=== PATIENT | male | born 1940 | race Caucasian/White ===

== ENCOUNTER → 2017-07-22 | Outpatient (CLI) | payer MEDICARE ==
[2014-09-08 08:35] VITALS: BMI 31.4
[~2017-07-22] MED LIST: ACET650T40 PO; ALB17R INH; ALBU8.5H IH; AMLO-101 PO; AMLO-96 PO; ASPI-1441 PO; ASPI-715 PO; ASPI81TA94 PO; BACDS PO; BIS10S PR; BUDE10.2 IH; BUDE1AMP INH; CALC500T42 PO; CEF300 PO; CHOL500045 PO; CHOLESTEROL MED; CIP500 PO; CYC10 PO; DILT120T13 PO; DOC100 PO; EYE VITAMIN; FENT1PAT12 TD; FLAX100042 PO; FLUC150T40 PO; FOLTX PO; GAB300 PO; GLUC1KIT4 SQ; HYDR-2966 PO; HYDR-3078 PO; IPRA3AMP21 IH; KET10 PO; L.AC1CAP6 PO; LACT1CAP12; LEV500 PO; LEVO-85 PO; LOR5/325 PO; LORA0.5T11 PO; MACULAR PROTECT PO; MECL12.5 PO; MET10 PO; METH4TAB66 PO; MIDO2.5T12 PO; OLME1TAB49 PO; OLME1TAB51 PO; OMEP40CA48 PO; ONDA4TAB PO; OXYC-373 PO; OXYC-865 PO; OXYC-870 PO; OXYGEN INH; PER PO; PRED-420 PO; RANI-324 PO; SILD100T59 PO; SILD20TA PO; SIMV-44 PO; UMEC1DIS INH; VITAMIN D
[2017-07-22 09:05] LABS: PLATELET COUNT, AUTOMATED 177 K/uL (150-450)
== END ==
LOC: LAB 08:47
PROVIDERS: ATTEND Internal Medicine
DX: I25.10 Atherosclerotic heart disease of native coronary artery without angina pectoris (principal); K21.9 Gastro-esophageal reflux disease without esophagitis; E03.9 Hypothyroidism, unspecified; I10 Essential (primary) hypertension; Z95.0 Presence of cardiac pacemaker; Z01.818 Encounter for other preprocedural examination
CPT/HCPCS: 36415; 82040; 82247; 82310; 82374; 82435; 82565; 82947; 84075; 84132; 84155; 84295; 84443; 84450; 84460; 84520; 85025

== ENCOUNTER 2017-08-18 01:47 | Day surgery (SDC) | payer MEDICARE ==
[2014-09-08 08:35] VITALS: Ht 188 cm; Wt 99.8 kg
[~2017-08-18] VITALS: Ht 188 cm; Wt 99.8 kg
[2017-08-18] MEDS ORDERED: MIDAZOLAM 2 MG/2 ML VIAL IVP PRN (06:45)
[2017-08-18] MEDS ORDERED: FAMOTIDINE 20 MG TAB PO ONE (06:45)
[2017-08-18] MEDS ORDERED: NORMOSOL R SOLN(*) 1000 ML BAG 1,000 ML IV PRN (06:45)
[2017-08-18] MEDS ORDERED: LIDOCAINE/SOD BICARB 8.4% SYR ID ONE (06:45)
[2017-08-18 13:37] VITALS: BP 139/80
[2017-08-18] MEDS ORDERED: fentaNYL CITR 100 MCG/2 ML AMP ONE (13:42)
[2017-08-18] MEDS ORDERED: ONDANSETRON 4 MG/2 ML VIAL ONE (13:43)
[2017-08-18] MEDS ORDERED: LIDOCAINE MPF 1% 5 ML VIAL ONE (13:43)
[2017-08-18] MEDS ORDERED: PROPOFOL EMUL(*) 10MG/ML 20 ML 20 ML ONE (13:43)
[2017-08-18] MEDS ORDERED: ALBUTEROL/IPRATROPIUM 3 ML NEB ONE (13:54)
[2017-08-18] MEDS ORDERED: AMLO-104 PO (13:55)
[2017-08-18] MEDS ORDERED: LIDO/EPI 1% MDV 1:100,000 20ML INFIL ONE (14:35)
[2017-08-18] MEDS ORDERED: ROPIVACAINE 0.5% 20 ML VIAL ONE (14:35)
[2017-08-18] MEDS ORDERED: MIDAZOLAM 2 MG/2 ML VIAL ONE (15:19)
[2017-08-18] MEDS ORDERED: OXYC-373 PO (16:42)
[2017-08-18] MEDS ORDERED: DOCU-416 PO (16:42)
--- NOTE | 2017-08-18 16:45 | Short(Outpt) Discharge Summary ---
Discharge Summary Reason for Hosp/Final Diag: (1) Subcutaneous mass of head Status: Chronic Hospital Course & Plan: Scalp mass remove without problems. Departure Discharge to: Home, Self Care Discharge Instructions Home Meds Active Scripts Docusate Sodium (COLACE) 100 Mg Capsule, 1 CAP PO BID, #30 CAP 0 Refills TAKE WITH A FULL GLASS OF WATER Prov:EVAN BALLARD MD 08/18/17 Oxycodone Hcl/Acetaminophen (OXYCODONE-ACETAMINOPHEN 5-325) 1 Each Tablet, 1-2 TAB PO Q4H Y for PAIN, #30 TAB 0 Refills Prov:EVAN BALLARD MD 08/18/17 Umeclidinium Brm/Vilanterol Tr (Anoro Ellipta 62.5-25 Mcg INH) 1 Each Disk.w.dev , 1 PUFF INH QDAY, #1 DISK 6 Refills Prov:JAMAICA ESTRELLA MD 07/06/17 Budesonide (Budesonide) 1 Mg/2 Ml Ampul.neb, 1 VIAL INH BID, #60 VIAL 4 Refills Prov:JAMAICA ESTRELLA MD 06/21/17 Albuterol Sulfate 90 Mcg/Act (PROAIR HFA 90 MCG/ACT) 8.5 Gm Hfa.aer.ad, 2 PUFF IH Q4-6H, #1 INHALER 1 Refill Prov:JAMAICA ESTRELLA MD 06/07/17 Ipratropium/Albuterol Sulfate (IPRAT-ALBUT 0.5-3(2.5) MG/3 ML) 3 Ml Ampul.neb, 3 ML IH QID Y for DYSPNEA for 30 Days, #120 Prov:NATIVIDAD REDDING MD 05/24/17 Reported Medications Amlodipine Besylate (NORVASC) 10 Mg Tablet, 1 TAB PO QDAY, TAB 08/18/17 Aspirin (ASPIRIN) 81 Mg Tab.chew, 81 MG PO QDAY, TAB.CHEW 03/02/17 Discontinued Reported Medications Amlodipine Besylate (AMLODIPINE BESYLATE) 5 Mg Tablet, 1 TAB PO QDAY, TAB 01/05/17 Follow up Referrals: General Surgery - 09/12/17 @ Surgery, General with Evan Ballard Md You have a follow up appointment scheduled with Dr. Ballard on 09/12/17, at 11:45am. Diet: Regular Activity: As Tolerated Special Instructions: You may remove the white surgical dressing on 08/20/17, then you can shower. After showering, leave the incision open to air but leave the steristrips in place until they fall off on their own. Do not immerse the incision for 2 weeks. EVAN BALLARD MD Aug 18, 2017 16:45
--- NOTE | 2017-08-18 16:49 | Post Operative Progress Note ---
Post Operative Progress Note Date: Aug 18, 2017 Time: 16:44 Surgeon: Gabe Dictation number: [id number] Anesthesia: MAC by Dr. Dunn Pre-Op Diagnosis: Subcutaneous mass, scalp Post-Op Diagnosis: MER Findings: C/W dx Procedure(s): Excision of scalp subcutaneous mass Specimen Removed:(May be N/A): Subcutaneous mass, scalp Complications: None Fluids: See anesthesia record Estimated Blood Loss: Minimal Date OP Note Dictated: Aug 18, 2017 Time OP Note Dictated: 16:45 EVAN BALLARD MD Aug 18, 2017 16:49
[2017-08-18] MEDS ORDERED: oxyCODONE/ACETAMIN 5/325MG TH 2 TAB/BOTTLE ONE (17:41)
--- NOTE | 2017-08-19 14:22 | OPERATIVE REPORT 1 ---
EVENT DATE: August 18, 2017 SURGEON: Pablo Bernal MD ANESTHESIOLOGIST: Curtis Dunn MD ANESTHESIA: MAC. PREOPERATIVE DIAGNOSIS Subcutaneous mass, scalp. POSTOPERATIVE DIAGNOSIS Subcutaneous mass, scalp. PROCEDURE PERFORMED Excision of subcutaneous mass from scalp. COMPLICATIONS None. CONDITION Stable. BLOOD LOSS Minimal. INDICATIONS This is a 77-year-old gentleman who presented to my office with a mass on his right scalp behind his ear that he was requesting to have removed. DESCRIPTION OF PROCEDURE The patient was brought to the operating room and placed in the left lateral decubitus position on the operating table. MAC was administered, and his right posterior scalp was prepped and draped in a sterile fashion. Timeout was completed. I injected the skin overlying the mass initially with 1% lidocaine with epinephrine for immediate anesthesia, and then for longer acting, I injected 0.5% ropivacaine plain. I made a transverse incision overlying the mass and dissected through the dermis and into the subcutaneous fat. The mass was intramuscular, and it was adherent to the occipitalis muscle and galea, and I had to dissect it away from this layer with scissors. Ultimately, I was able to dissect it free completely around and made the wound hemostatic with bipolar electrocautery. I irrigated and dried the wound and then closed the wound with interrupted 3-0 Vicryl deep dermal sutures and 4-0 Monocryl running subcuticular suture. The skin was cleaned and dried, and Steri-Strips were applied, followed by a sterile surgical dressing. The patient was then awakened and brought to the recovery room in good condition having tolerated the procedure without any apparent problems. BRANDI
== END 2017-08-18 18:00 | disposition home or self-care (01) ==
LOC: OR 01:47
PROVIDERS: ATTEND Surgery
DX: D17.0 Benign lipomatous neoplasm of skin and subcutaneous tissue of head, face and neck (principal); E11.9 Type 2 diabetes mellitus without complications
CPT/HCPCS: 21012; 36416; 82948; 88305; 94640; A9270; J2001; J2250; J2405; J2704; J2795; J3010; J7620

== ENCOUNTER → 2017-11-09 | Outpatient (CLI) | payer MEDICARE ==
[2014-09-08 08:35] VITALS: BMI 31.4
[~2017-11-09] MED LIST changes: +AMLO-104 PO; +CHOL4PAC14 PO; +DOCU-416 PO; +EFIN4SOL TD; -RANI-324 PO; +RANI-366 PO
[2017-11-09 09:45] LABS: PLATELET COUNT, AUTOMATED 160 K/uL (150-450)
== END ==
LOC: LAB 09:15
PROVIDERS: ATTEND Internal Medicine
DX: I10 Essential (primary) hypertension (principal); E03.9 Hypothyroidism, unspecified; I25.10 Atherosclerotic heart disease of native coronary artery without angina pectoris; J44.9 Chronic obstructive pulmonary disease, unspecified; K52.9 Noninfective gastroenteritis and colitis, unspecified; Z90.49 Acquired absence of other specified parts of digestive tract; Z95.0 Presence of cardiac pacemaker
CPT/HCPCS: 36415; 82040; 82247; 82310; 82374; 82435; 82565; 82947; 83735; 84075; 84132; 84155; 84295; 84443; 84450; 84460; 84520; 85025

== ENCOUNTER → 2018-01-09 | Outpatient (CLI) | payer MEDICARE ==
[2014-09-08 08:35] VITALS: BMI 31.4
[~2018-01-09] MED LIST changes: +APIX5TAB PO; +ATOR40TA69 PO; +PRED20TA6 PO; +TRAM-420 PO
[2018-01-09 11:55] LABS: INR 1.15
[2018-01-09 13:36] LABS: PLATELET COUNT, AUTOMATED 194 K/uL (150-450)
== END ==
LOC: LAB 11:34
PROVIDERS: ATTEND Nurse Practitioner Family
DX: Z79.01 Long term (current) use of anticoagulants (principal); R53.1 Weakness; W19.XXXA Unspecified fall, initial encounter
CPT/HCPCS: 36415; 81001; 82040; 82247; 82310; 82374; 82435; 82565; 82947; 84075; 84132; 84155; 84295; 84450; 84460; 84520; 85025; 85610

== ENCOUNTER 2018-02-02 06:52 | Outpatient (RCR) | payer MEDICARE ==
[2014-09-08 08:35] VITALS: BMI 31.4
[2018-02-01 15:47] LABS: PLATELET COUNT, AUTOMATED 194 K/uL (150-450)
[~2018-02-02 06:52] MED LIST changes: +IPRA3AMP10 IH; -IPRA3AMP21 IH
--- NOTE | 2018-02-02 15:47 | RADIOLOGY IMAGING REPORT ---
FACILITY: [facility] PATIENT NAME: Kwesi Vasquez : 1940 MR: [id number] V: [id number] EXAM DATE: ORDERING PHYSICIAN: ERIKA LIRA TECHNOLOGIST: Location: [facility] - [place] Patient: Kwesi Vasquez : 1940 Visit/Account:[id number] Date of Sevice: 02/02/2018 Limited abdominal ultrasound of the right upper quadrant Indication: , RUQ abdominal pain Comparison: 11/14/2011 Findings Liver is normal in size, contour, and echotexture and measures 14.9 cm in length. There is normal hep atopedal portal venous flow. Gallbladder surgically absent. Common duct measures 4.0 mm in maximum diameter with no evidence of shadowing stone. The head and proximal body of the pancreas is unremarkable. The distal body and tail is obscured by o verlying bowel gas. Abdominal aorta and IVC are patent and unremarkable. The right kidney is normal in size, contour, and echotexture and measures 11.8 cm in length. IMPRESSION: 1. Normal right upper quadrant ultrasound in patient with prior cholecystectomy Report Dictated By: Quentin Martinez at 02/02/2018 3:42 PM Report E-Signed By: Quentin Martinez at 02/02/2018 3:44 PM WSN:[id number]
== END 2018-02-02 18:00 | disposition home or self-care (01) ==
LOC: EDSTATUS 06:52 → US 06:52
PROVIDERS: ATTEND Nurse Practitioner Primary Care
DX: R10.11 Right upper quadrant pain (principal); Z90.49 Acquired absence of other specified parts of digestive tract
CPT/HCPCS: 36415; 76705; 82040; 82150; 82247; 82310; 82374; 82435; 82565; 82947; 83690; 84075; 84132; 84155; 84295; 84450; 84460; 84520; 85025

== ENCOUNTER → 2018-02-24 | Outpatient (CLI) | payer MEDICARE ==
[2014-09-08 08:35] VITALS: BMI 31.4
== END ==
LOC: LAB 10:33
PROVIDERS: ATTEND Internal Medicine Cardiovascular Disease
DX: I27.20 Pulmonary hypertension, unspecified (principal)
CPT/HCPCS: 36415; 82310; 82374; 82435; 82565; 82947; 83880; 84132; 84295; 84520

== ENCOUNTER 2018-07-03 08:42 | Emergency (ER) | payer MEDICARE ==
[2014-09-08 08:35] VITALS: Wt 98.9 kg
[~2018-07-03 08:42] MED LIST changes: +AMLO-111 PO; -AMLO-96 PO; +BACL-1 PO; +FURO-47 PO; +OXYGENHOME INH; +POTA-23 PO; +PRED-1; +RIOC1.5T PO
--- NOTE | 2018-07-03 08:48 | ER Report ---
History and Physical Time Seen By MD: 08:48 HPI/ROS CHIEF COMPLAINT: Chest pain, shortness breath, cough HISTORY OF PRESENT ILLNESS: Patient is an 78-year-old male with a history of pulmonary embolism in November on , history of pulmonary hypertension being treated in pulmonary clinic. Patient reports that he recently had an esophageal surgery for which she was taken off of his Ellick was 3 days prior to the procedure which was on last Tuesday one week ago. Patient reports developing midsternal and right-sided chest pains which she describes as soreness for the past several days. Patient does wear oxygen at night and was noted to be 86% on room air but refuses to wear oxygen [id number]. Patient does have a pacemaker in place. He does report having worsening cough which is productive of clear sputum. The chest pain is partially reproducible on palpation of the right chest wall. Patient is afebrile, otherwise hemodynamically stable at time of evaluation. He does report having intermittent chills but denies fever. Patient does not take nebulizers at home due to lack of efficacy per his report. REVIEW OF SYSTEMS: Constitutional: No fever,+ chills. Eyes: No discharge. ENT: No sore throat. Cardiovascular: + mid sternal and right sided chest pain, no palpitations. Respiratory: + cough, + shortness of breath. Gastrointestinal: No abdominal pain, no vomiting. Genitourinary: No hematuria. Musculoskeletal: No back pain. Skin: No rashes. Neurological: No headache. Allergies: Coded Allergies: Penicillins (Verified Allergy, Intermediate, HIVES, 07/03/18) cefazolin (Verified Allergy, Intermediate, HIVES, 07/03/18) Home Meds Active Scripts Oxygen (OXYGEN) Inha, 2 L INH DAILY, #2 L Prov:LAUREN PUGA APRN [employer] 03/23/18 Ipratropium/Albuterol Sulfate (IPRAT-ALBUT 0.5-3(2.5) MG/3 ML) 3 Ml Ampul.neb, 3 ML IH QID PRN for DYSPNEA, #180 EA 1 Refill Prov:JAMAICA ESTRELLA MD 11/14/17 Reported Medications Macitentan (Opsumit) 10 Mg Tablet 07/03/18 Prednisone 10 Mg Tab (PREDNISONE 10 MG TAB) 10 Mg Tablet 03/23/18 Baclofen (BACLOFEN) 10 Mg Tablet, 1 TAB PO BID 03/23/18 Potassium Chloride (KLOR-CON 10) 10 Meq Tablet.er, 1 TAB PO DAILY, TAB 03/23/18 Furosemide (FUROSEMIDE) 40 Mg Tablet, 1 TAB PO DAILY, TAB 03/23/18 Riociguat (Adempas) 1.5 Mg Tablet, 1 TAB PO TID 03/23/18 Atorvastatin Calcium (ATORVASTATIN CALCIUM) 40 Mg Tablet, 1 TAB PO QDAY, TAB 01/09/18 Apixaban (ELIQUIS) 5 Mg Tablet, 1 TAB PO BID 01/09/18 Amlodipine Besylate (NORVASC) 10 Mg Tablet, 1 TAB PO QDAY, TAB 08/18/17 Aspirin (ASPIRIN) 81 Mg Tab.chew, 81 MG PO QDAY, TAB.CHEW 03/02/17 Hx Smoking: No Smoking Status: Never Smoker Exposure to Second Hand Smoke?: No Hx Substance Use Disorder: No Hx Alcohol Use: No Constitutional Vital Sign - Last 24 Hours 07/03/18 07/03/18 07/03/18 07/03/18 08:42 08:46 08:47 08:57 Temp 97.7 Pulse ??? 63 61 Resp 14 21 B/P (MAP) 115/69 (84) 115/69 Pulse Ox 86 96 O2 Delivery Room Air Nasal Cannula O2 Flow Rate 2 07/03/18 07/03/18 07/03/18 07/03/18 09:00 09:12 09:27 09:30 Pulse 62 61 Resp 19 11 B/P (MAP) 107/65 (79) 112/75 (87) Pulse Ox 95 95 O2 Delivery Nasal Cannula Nasal Cannula O2 Flow Rate 2 2 07/03/18 07/03/18 07/03/18 07/03/18 10:00 10:05 10:20 10:35 Pulse 66 60 68 Resp 27 15 13 B/P (MAP) 100/69 (79) Pulse Ox 97 96 96 O2 Delivery Nasal Cannula Nasal Cannula Room Air O2 Flow Rate 2 2 Physical Exam General Appearance: The patient is alert, has no immediate need for airway protection and no signs of toxicity. NAD Eyes: Pupils equal and round no pallor or injection. ENT, Mouth: Mucous membranes are moist. Respiratory: There are no retractions, lungs are clear to auscultation. Cardiovascular: Regular rate and rhythm. Gastrointestinal: Abdomen is soft and non tender, no masses, bowel sounds normal. Neurological: No focal neuro deficits Skin: Warm and dry, no rashes. Musculoskeletal: Neck is supple non tender. Extremities are nontender, nonswollen and have full range of motion. DIFFERENTIAL DIAGNOSIS: After history and physical exam differential diagnosis was considered for chest pain including but not limited to myocardial ischemia, pericarditis pulmonary embolus, chest wall pain, pleural inflammation and pulmonary infectious causes. Medical Decision Making Data Points Result Diagram: 07/03/18 0916 07/03/18 0916 Laboratory Hematology Test 07/03/18 09:16 Red Blood Count 4.60 M/uL (4.00-5.60) Mean Corpuscular Volume 90.1 fL (80.0-96.0) Mean Corpuscular Hemoglobin 30.4 pg (26.0-33.0) Mean Corpuscular Hemoglobin Concent 33.7 g/dL (32.0-36.0) Red Cell Distribution Width 14.4 % (11.5-14.5) Mean Platelet Volume 8.3 fL (7.2-11.1) Neutrophils (%) (Auto) 69.0 % (39.4-72.5) Lymphocytes (%) (Auto) 19.7 % (17.6-49.6) Monocytes (%) (Auto) 8.0 % (4.1-12.4) Eosinophils (%) (Auto) 2.1 % (0.4-6.7) Basophils (%) (Auto) 1.2 % (0.3-1.4) Nucleated RBC Relative Count (auto) 0.0 /100WBC Neutrophils # (Auto) 3.4 K/uL (2.0-7.4) Lymphocytes # (Auto) 1.0 K/uL (1.3-3.6) Monocytes # (Auto) 0.4 K/uL (0.3-1.0) Eosinophils # (Auto) 0.1 K/uL (0.0-0.5) Basophils # (Auto) 0.1 K/uL (0.0-0.1) Nucleated RBC Absolute Count (auto) 0.00 K/uL Sodium Level 138 mmol/L (137-145) Potassium Level 4.1 mmol/L (3.5-5.0) Chloride Level 101 mmol/L (98-107) Carbon Dioxide Level 30 mmol/L (22-30) Blood Urea Nitrogen 16 mg/dl (9-21) Creatinine 0.90 mg/dl (0.66-1.25) Glomerular Filtration Rate Calc > 60.0 Random Glucose 100 mg/dl (75-110) Calcium Level 9.0 mg/dl (8.4-10.2) Total Bilirubin 0.5 mg/dl (0.2-1.3) Aspartate Amino Transf (AST/SGOT) 42 U/L (0-35) Alanine Aminotransferase (ALT/SGPT) 56 U/L (0-56) Alkaline Phosphatase 53 U/L (0-126) Troponin I < 0.012 ng/ml Total Protein 6.7 g/dl (6.3-8.2) Albumin 3.7 g/dl (3.5-5.0) Chemistry Test 07/03/18 09:16 White Blood Count 4.9 k/uL (4.5-11.0) Red Blood Count 4.60 M/uL (4.00-5.60) Hemoglobin 14.0 g/dL (14.0-18.0) Hematocrit 41.4 % (42.0-52.0) Mean Corpuscular Volume 90.1 fL (80.0-96.0) Mean Corpuscular Hemoglobin 30.4 pg (26.0-33.0) Mean Corpuscular Hemoglobin Concent 33.7 g/dL (32.0-36.0) Red Cell Distribution Width 14.4 % (11.5-14.5) Platelet Count 159 K/uL (150-450) Mean Platelet Volume 8.3 fL (7.2-11.1) Neutrophils (%) (Auto) 69.0 % (39.4-72.5) Lymphocytes (%) (Auto) 19.7 % (17.6-49.6) Monocytes (%) (Auto) 8.0 % (4.1-12.4) Eosinophils (%) (Auto) 2.1 % (0.4-6.7) Basophils (%) (Auto) 1.2 % (0.3-1.4) Nucleated RBC Relative Count (auto) 0.0 /100WBC Neutrophils # (Auto) 3.4 K/uL (2.0-7.4) Lymphocytes # (Auto) 1.0 K/uL (1.3-3.6) Monocytes # (Auto) 0.4 K/uL (0.3-1.0) Eosinophils # (Auto) 0.1 K/uL (0.0-0.5) Basophils # (Auto) 0.1 K/uL (0.0-0.1) Nucleated RBC Absolute Count (auto) 0.00 K/uL Glomerular Filtration Rate Calc > 60.0 Calcium Level 9.0 mg/dl (8.4-10.2) Total Bilirubin 0.5 mg/dl (0.2-1.3) Aspartate Amino Transf (AST/SGOT) 42 U/L (0-35) Alanine Aminotransferase (ALT/SGPT) 56 U/L (0-56) Alkaline Phosphatase 53 U/L (0-126) Troponin I < 0.012 ng/ml Total Protein 6.7 g/dl (6.3-8.2) Albumin 3.7 g/dl (3.5-5.0) EKG/Imaging EKG Interpretation Electronic atrial pacer, ventricular rate 62, QTC 414 Monitor Interpretation: Other (Paced rhythm) Imaging CTA CHEST WW/O CNTR (PULM ANG) HISTORY: SOB, CP, hx PE in november, recent surgery TECHNIQUE: CTA chest with intravenous contrast attention to pulmonary arteries. Sagittal, coronal and slab 3D MIP coronal reconstructed images were also created for further evaluation and interpretation. One of the following dose optimization techniques was utilized in the performance of this exam: Automated exposure control; adjustment of the mA and/or kV according to the patient's size; or use of an iterative reconstruction technique. Specific details can be referenced in the facility's radiology CT exam operational policy. CONTRAST: 75 mL Isovue-370. COMPARISON: CT dated May 24, 2017. FINDINGS: Heart/vessels: Satisfactory opacification of the pulmonary arteries without visualized pulmonary embolus. At least moderate calcifications within the coronary arteries. Mild sclerosis within the aortic valve. Mediastinum: Negative. Lymph nodes: Negative. Lungs/pleura: No pulmonary or consolidation. Mild linear atelectasis and/or scarring within the lung bases. Visualized upper abdomen: Negative. Bones/soft tissues: Multiple chronic healed rib fractures. Partial visualization of cervical fusion hardware. No acute or concerning osseous abnormality. Mild chronic wedge-shaped compression deformity of the T4 and T5 vertebral bodies. There is exaggerated kyphosis of the thoracic spine. IMPRESSION: 1. No acute findings. Negative for pulmonary embolus. 2. At least moderate calcifications within the coronary arteries. ED Course/Re-evaluation ED Course Patient is an 78-year-old male with a history of hypertension, pulmonary embolism in November, recent esophageal surgery for which she was taken off of Eloquis. Patient reports worsening cough, midsternal and right-sided chest pain which is partially reproducible and sore in nature. Patient was noted to be 86% on room air with supplemental nocturnal oxygen history but refuses to wear oxygen during the day due to his activities. Patient is concerned that he has a recurrent pulmonary embolism or lung infection prompting CT PE which was found to be negative for pulmonary embolism and infection. Troponin was negative. Blood counts were unremarkable otherwise. Patient was stable at time of discharge. Patient was advised to keep his scheduled appointment to follow up with his PCP closely. Decision to Disposition Date: Jul 03, 2018 Decision to Disposition Time: 10:29 Depart Departure Latest Vital Signs Vital Signs Date Time Temp Pulse Resp B/P (MAP) Pulse Ox O2 Delivery O2 Flow Rate FiO2 07/03/18 10:35 68 13 96 Room Air 07/03/18 10:20 2 07/03/18 10:00 100/69 (79) 07/03/18 08:47 97.7 Impression: Primary Impression: Chest wall pain Condition: Improved Disposition: HOME OR SELF-CARE Referrals: LAUREN PUGA APRN [facility] (PCP) Patient Instructions: Chest Wall Pain (GEN) Additional Instructions: Please keep scheduled appointments. Please follow-up with your family doctor in the next 2 days for follow-up evaluation and care. Please return promptly if you develop worsening pain, increased shortness breath, fevers, worsening cough. CT imaging of your chest showed no signs of pneumonia or pulmonary embolism. MIKE MAYA DO Jul 03, 2018 08:48
[2018-07-03] MEDS ORDERED: MACI10TA (08:55)
[2018-07-03] MEDS ORDERED: IOPAMIDOL 76% 100 ML INFUS BTL 100 ML ONE (09:20)
[2018-07-03] MEDS ORDERED: NS(*) 0.9% 50 ML BAG 50 ML ONE (09:20)
[2018-07-03 09:26] LABS: PLATELET COUNT, AUTOMATED 159 K/uL (150-450)
[2018-07-03 10:00] VITALS: BP 100/69
--- NOTE | 2018-07-03 10:23 | RADIOLOGY IMAGING REPORT ---
FACILITY: [facility] PATIENT NAME: Kwesi Vasquez : 1940 MR: [id number] V: [id number] EXAM DATE: ORDERING PHYSICIAN: MIKE MAYA TECHNOLOGIST: [place] [facility] [place] Kwesi Vas[place] : 1940 Visit/Account:[id number] Date of Sevice: 07/03/2018 CTA CHEST WW/O CNTR (PULM ANG) HISTORY: SOB, CP, hx PE in november, recent surgery TECHNIQUE: CTA chest with intravenous contrast attention to pulmonary arteries. Sagittal, coronal a nd slab 3D MIP coronal reconstructed images were also created for further evaluation and interpretati on. One of the following dose optimization techniques was utilized in the performance of this exam: Autom ated exposure control; adjustment of the mA and/or kV according to the patient's size; or use of an i terative reconstruction technique. Specific details can be referenced in the facility's radiology CT exam operational policy. CONTRAST: 75 mL Isovue-370. COMPARISON: CT dated May 24, 2017. FINDINGS: Heart/vessels: Satisfactory opacification of the pulmonary arteries without visualized pulmonary emb olus. At least moderate calcifications within the coronary arteries. Mild sclerosis within the aortic valve. Mediastinum: Negative. Lymph nodes: Negative. Lungs/pleura: No pulmonary or consolidation. Mild linear atelectasis and/or scarring within the lung bases. Visualized upper abdomen: Negative. Bones/soft tissues: Multiple chronic healed rib fractures. Partial visualization of cervical fusion hardware. No acute or concerning osseous abnormality. Mild chronic wedge-shaped compression deformity of the T4 and T5 vertebral bodies. There is exaggerated kyphosis of the thoracic spine. IMPRESSION: 1. No acute findings. Negative for pulmonary embolus. 2. At least moderate calcifications within the coronary arteries. Report Dictated By: Wilmer Mendez MD at 07/03/2018 10:14 AM Report E-Signed By: Wilmer Mendez MD at 07/03/2018 10:19 AM WSN:[id number]
--- NOTE | 2018-07-03 11:23 | EKG ---
FACILITY: [facility] - [place] PATIENT NAME: EMILY DE LEON : [id number] MR: [id number] V: [id number] EXAM DATE: ORDERING PHYSICIAN: MIKE MAYA TECHNOLOGIST: STEVIE Test Reason : CP Blood Pressure : / mmHG Vent. Rate : 062 BPM Atrial Rate : 062 BPM P-R Int : 228 ms QRS Dur : 104 ms QT Int : 408 ms P-R-T Axes : 000 019 007 degrees QTc Int : 414 ms Electronic atrial pacemaker When compared with ECG of 07-JUN-2017 11:49, No significant change was found Confirmed by EVAN CARNES ([id number]) on 07/04/2018 6:26:42 AM Referred By: FRANCESCO Confirmed By:EAVN CARNES
== END 2018-07-03 10:53 | disposition home or self-care (01) ==
LOC: ER 08:53
DX: R07.89 Other chest pain (principal)
CPT/HCPCS: 71275; 84484; 85025; 93005; 99284; J7050; Q9967; 82040; 82247; 82310; 82374; 82435; 82565; 82947; 84075; 84132; 84155; 84295; 84450; 84460; 84520

== ENCOUNTER 2018-07-13 09:00 | Outpatient (RCR) | payer MEDICARE ==
[2014-09-08 08:35] VITALS: BMI 31.4
[~2018-07-13 09:00] MED LIST changes: -AMLO-111 PO; +AMLO-125 PO; +MACI10TA
[2018-07-21] MEDS ORDERED: LEVO-85 PO (10:53)
[2018-07-21] MEDS ORDERED: FLUT16SP19 NS (10:53)
[2018-07-23] MEDS ORDERED: PRED50TA22 PO (00:47)
[2018-07-23] MEDS ORDERED: IPRA3AMP10 IH (00:47)
[2018-07-23] MEDS ORDERED: NEBU1KIT30 MC (00:47)
[2018-07-24] MEDS ORDERED: CHOL10005 PO (10:07)
[2018-07-24] MEDS ORDERED: RIOC2.5T PO (10:07)
[2018-07-24] MEDS ORDERED: POTA20TA94 PO (10:07)
[2018-07-28] MEDS ORDERED: IPRA3AMP10 IH (10:58)
[2018-07-28] MEDS ORDERED: LEVO-85 PO (10:58)
[2018-07-28] MEDS ORDERED: PRED-1 PO (10:58)
[2018-08-09] MEDS ORDERED: FLUT1DIS28 IH (16:54)
[2018-08-09] MEDS ORDERED: BENZ200C15 PO (16:54)
== END 2018-08-09 ==
LOC: CARD 09:00
PROVIDERS: ATTEND Nurse Practitioner Family
DX: I27.20 Pulmonary hypertension, unspecified (principal)
CPT/HCPCS: 94667; G0239

== ENCOUNTER 2018-07-22 21:57 | Emergency (ER) | payer MEDICARE ==
[2014-09-08 08:35] VITALS: Wt 99.8 kg
[~2018-07-22 21:57] MED LIST changes: +AMLO-111 PO; -AMLO-125 PO; +FLUT16SP19 NS
--- NOTE | 2018-07-22 22:01 | ER Report ---
History and Physical Time Seen By MD: 22:00 HPI/ROS CHIEF COMPLAINT: Cough, shortness of breath HISTORY OF PRESENT ILLNESS: Patient is an 78-year-old male here with complaints of cough, shortness breath, fevers, chills, general malaise since . Patient reportedly started taking Levaquin and after being seen by his PCP yesterday however he reports increasing shortness of breath, fevers in spite of treatment. Patient denies history of smoking but does have a history significant for pulmonary emboli on [place]. Patient denies history of COPD, CHF. Patient has complaints of being unable to take a deep breath, he is wheezing present in all lung garcia. Patient does not have nebulizer treatments at home to take. He was 85% on room air which is a new oxygen requirement for this patient. Patient does have a pacemaker in place. REVIEW OF SYSTEMS: Constitutional: + fever, + chills. Eyes: No discharge. ENT: No sore throat. Cardiovascular: No chest pain, no palpitations. Respiratory: + cough, + shortness of breath, + wheezing in all lung garcia Gastrointestinal: No abdominal pain, no vomiting. Genitourinary: No hematuria. Musculoskeletal: No back pain. Skin: No rashes. Neurological: No headache. Allergies: Coded Allergies: Penicillins (Verified Allergy, Intermediate, HIVES, 07/03/18) cefazolin (Verified Allergy, Intermediate, HIVES, 07/03/18) Home Meds Active Scripts Nebulizer (COMPACT COMPRESSOR NEBULIZER) 1 Each Each, EACH MC PRN for WHEEZING, #1 Prov:MIKE MAYA S DO 07/23/18 Ipratropium/Albuterol Sulfate (IPRAT-ALBUT 0.5-3(2.5) MG/3 ML) 3 Ml Ampul.neb, 3 ML IH Q6-8H PRN for WHEEZING, #30 VIAL Prov:MAYAMIKE S DO 07/23/18 Prednisone (PREDNISONE) 50 Mg Tablet, 50 MG PO QDAY for 4 Days, #4 TAB Prov:MAYAPKMIKE S DO 07/23/18 Fluticasone Prop 50 Mcg Ns (FLONASE 50 MCG NS) 16 Gm [place].susp, 2 SPRAYS NS QDAY for 30 Days, #1 BOT Prov:GERHARD BERMUDEZ MD 07/21/18 Levofloxacin 500 Mg Tab (LEVAQUIN 500 MG TAB) 500 Mg Tablet, 500 MG PO DAILY for 7 Days, #7 TAB Prov:GERHARD BERMUDEZ MD 07/21/18 Oxygen (OXYGEN) [place], 2 L INH DAILY, #2 L Prov:LAUREN PUGA APRN [facility] 03/23/18 Reported Medications Macitentan (Opsumit) 10 Mg Tablet 07/03/18 Potassium Chloride (KLOR-CON 10) 10 Meq Tablet.er, 1 TAB PO DAILY, TAB 03/23/18 Furosemide (FUROSEMIDE) 40 Mg Tablet, 1 TAB PO DAILY, TAB 03/23/18 Riociguat (Adempas) 1.5 Mg Tablet, 1 TAB PO TID 03/23/18 Atorvastatin Calcium (ATORVASTATIN CALCIUM) 40 Mg Tablet, 1 TAB PO QDAY, TAB 01/09/18 Apixaban (ELIQUIS) 5 Mg Tablet, 1 TAB PO BID 01/09/18 Amlodipine Besylate (NORVASC) 10 Mg Tablet, 1 TAB PO QDAY, TAB 08/18/17 Aspirin (ASPIRIN) 81 Mg Tab.chew, 81 MG PO QDAY, TAB.CHEW 03/02/17 Discontinued Reported Medications Prednisone 10 Mg Tab (PREDNISONE 10 MG TAB) 10 Mg Tablet 03/23/18 Baclofen (BACLOFEN) 10 Mg Tablet, 1 TAB PO BID 03/23/18 Discontinued Scripts Ipratropium/Albuterol Sulfate (IPRAT-ALBUT 0.5-3(2.5) MG/3 ML) 3 Ml Ampul.neb, 3 ML IH QID PRN for DYSPNEA, #180 EA 1 Refill Prov:JAMAICA ESTRELLA MD 11/14/17 Hx Smoking: No Smoking Status: Never Smoker Exposure to Second Hand Smoke?: No Hx Substance Use Disorder: No Hx Alcohol Use: No Constitutional Vital Sign - Last 24 Hours 07/22/18 07/22/18 07/22/18 07/22/18 21:57 22:02 22:05 22:10 Temp 98.9 Pulse ??? 64 Resp 16 B/P (MAP) 109/59 (76) 109/59 Pulse Ox 85 O2 Delivery Room Air O2 Flow Rate 3.0 12/29/18 12/29/18 12/29/18 12/29/18 22:12 22:15 22:15 22:27 Pulse 66 63 62 Resp 15 18 23 Pulse Ox 95 94 100 O2 Delivery Nasal Cannula O2 Flow Rate 2.5 07/22/18 07/22/18 07/22/18 07/22/18 22:30 22:31 22:42 22:57 Pulse 63 ??? 71 Resp 18 15 B/P (MAP) ???/??? (1665) Pulse Ox 96 O2 Delivery Nasal Cannula O2 Flow Rate 3 07/22/18 07/22/18 07/22/18 07/22/18 23:00 23:01 23:12 23:20 Temp 99.8 Pulse 63 67 Resp 18 16 B/P (MAP) 117/62 (80) Pulse Ox 96 O2 Delivery Nasal Cannula O2 Flow Rate 3 07/22/18 07/22/18 07/22/18 07/22/18 23:27 23:30 23:35 23:50 Pulse 79 71 73 Resp 40 12 16 B/P (MAP) 125/71 (89) Pulse Ox 96 97 97 O2 Delivery Nasal Cannula Nasal Cannula Nasal Cannula O2 Flow Rate 3 3 3 07/23/18 00:00 B/P (MAP) 92/38 (56) Physical Exam General Appearance: The patient is alert, has no immediate need for airway protection and no signs of toxicity. Mild distress due to SOB Eyes: Pupils equal and round no pallor or injection. ENT, Mouth: Mucous membranes are moist. Respiratory: + diffuse wheezing, diminished at bases Cardiovascular: Regular rate and rhythm. Gastrointestinal: Abdomen is soft and non tender, no masses, bowel sounds nor mal. Neurological: No focal neuro deficits Skin: Warm and dry, no rashes. Musculoskeletal: Neck is supple non tender. Extremities are nontender, nonswollen and have full range of motion. DIFFERENTIAL DIAGNOSIS: After history and physical exam differential diagnosis was considered for shortness of breath including but not limited to pulmonary infectious process, COPD, asthma, pulmonary embolus and congestive heart failure. Medical Decision Making Data Points Result Diagram: 07/22/18220807/22/182208 Laboratory Hematology Test 07/22/18 22:09 07/22/18 22:12 07/22/18 22:45 Red Blood Count 4.54 M/uL (4.00-5.60) Mean Corpuscular Volume 89.1 fL (80.0-96.0) Mean Corpuscular Hemoglobin 29.9 pg (26.0-33.0) Mean Corpuscular Hemoglobin Concent 33.5 g/dL (32.0-36.0) Red Cell Distribution Width 14.4 % (11.5-14.5) Mean Platelet Volume 8.8 fL (7.2-11.1) Neutrophils (%) (Auto) 57.0 % (39.4-72.5) Lymphocytes (%) (Auto) 22.7 % (17.6-49.6) Monocytes (%) (Auto) 15.7 % (4.1-12.4) Eosinophils (%) (Auto) 2.5 % (0.4-6.7) Basophils (%) (Auto) 2.1 % (0.3-1.4) Nucleated RBC Relative Count (auto) 0.0 /100WBC Neutrophils # (Auto) 2.7 K/uL (2.0-7.4) Lymphocytes # (Auto) 1.1 K/uL (1.3-3.6) Monocytes # (Auto) 0.7 K/uL (0.3-1.0) Eosinophils # (Auto) 0.1 K/uL (0.0-0.5) Basophils # (Auto) 0.1 K/uL (0.0-0.1) Nucleated RBC Absolute Count (auto) 0.00 K/uL Prothrombin Time 15.9 seconds (12.0-14.4) Prothromb Time International Ratio 1.26 Activated Partial Thromboplast Time 31 seconds (23-35) Blood Gas Patient Temperature 98.9 DEGREES Venous Blood pH 7.39 (7.31-7.41) Venous Blood Partial Pressure CO2 51 mmHg Venous Blood Partial Pressure O2 40 mmHg Venous Blood HCO3 31 mmol/L Venous Blood Oxygen Saturation 74 % Venous Blood Base Excess 6 mmol/L Oxygen Liters/Minute 95% Sodium Level 138 mmol/L (137-145) Potassium Level 3.7 mmol/L (3.5-5.0) Chloride Level 100 mmol/L (98-107) Carbon Dioxide Level 30 mmol/L (22-30) Blood Urea Nitrogen 17 mg/dl (9-21) Creatinine 1.00 mg/dl (0.66-1.25) Glomerular Filtration Rate Calc > 60.0 Random Glucose 100 mg/dl (75-110) Lactate 1.0 mmol/L (0.7-2.1) Calcium Level 9.1 mg/dl (8.4-10.2) Total Bilirubin 0.6 mg/dl (0.2-1.3) Aspartate Amino Transf (AST/SGOT) 27 U/L (0-35) Alanine Aminotransferase (ALT/SGPT) 44 U/L (0-56) Alkaline Phosphatase 53 U/L (0-126) Troponin I < 0.012 ng/ml B-Type Natriuretic Peptide 76 pg/ml (0-100) Total Protein 7.0 g/dl (6.3-8.2) Albumin 3.9 g/dl (3.5-5.0) Influenza Virus Type A (PCR) Negative (NEGATIVE) Influenza Virus Type B (PCR) Negative (NEGATIVE) Urine Color Yellow Urine Clarity Clear Urine pH 5.0 pH (4.8-9.5) Urine Specific [place] 1.017 Urine Protein Negative mg/dL (NEGATIVE) Urine Glucose (UA) Negative mg/dL (NEGATIVE) Urine Ketones Negative mg/dL (NEGATIVE) Urine Blood Negative (NEGATIVE) Urine Nitrite Negative (NEGATIVE) Urine Bilirubin Negative (NEGATIVE) Urine Urobilinogen Negative mg/dL (0.2-1.9) Urine Leukocyte Esterase Negative (NEGATIVE) Urine RBC None /HPF (0-2/HPF) Urine WBC <1 /HPF (0-5/HPF) Urine Squamous Epithelial Cells None /LPF (</=FEW) Urine Bacteria Negative /HPF (NONE-FEW) Urine Mucus Few /HPF (NONE-FEW) Chemistry Test 07/22/18 22:09 07/22/18 22:12 07/22/18 22:45 White Blood Count 4.7 k/uL (4.5-11.0) Red Blood Count 4.54 M/uL (4.00-5.60) Hemoglobin 13.6 g/dL (14.0-18.0) Hematocrit 40.4 % (42.0-52.0) Mean Corpuscular Volume 89.1 fL (80.0-96.0) Mean Corpuscular Hemoglobin 29.9 pg (26.0-33.0) Mean Corpuscular Hemoglobin Concent 33.5 g/dL (32.0-36.0) Red Cell Distribution Width 14.4 % (11.5-14.5) Platelet Count 146 K/uL (150-450) Mean Platelet Volume 8.8 fL (7.2-11.1) Neutrophils (%) (Auto) 57.0 % (39.4-72.5) Lymphocytes (%) (Auto) 22.7 % (17.6-49.6) Monocytes (%) (Auto) 15.7 % (4.1-12.4) Eosinophils (%) (Auto) 2.5 % (0.4-6.7) Basophils (%) (Auto) 2.1 % (0.3-1.4) Nucleated RBC Relative Count (auto) 0.0 /100WBC Neutrophils # (Auto) 2.7 K/uL (2.0-7.4) Lymphocytes # (Auto) 1.1 K/uL (1.3-3.6) Monocytes # (Auto) 0.7 K/uL (0.3-1.0) Eosinophils # (Auto) 0.1 K/uL (0.0-0.5) Basophils # (Auto) 0.1 K/uL (0.0-0.1) Nucleated RBC Absolute Count (auto) 0.00 K/uL Prothrombin Time 15.9 seconds (12.0-14.4) Prothromb Time International Ratio 1.26 Activated Partial Thromboplast Time 31 seconds (23-35) Blood Gas Patient Temperature 98.9 DEGREES Venous Blood pH 7.39 (7.31-7.41) Venous Blood Partial Pressure CO2 51 mmHg Venous Blood Partial Pressure O2 40 mmHg Venous Blood HCO3 31 mmol/L Venous Blood Oxygen Saturation 74 % Venous Blood Base Excess 6 mmol/L Oxygen Liters/Minute 95% Glomerular Filtration Rate Calc > 60.0 Lactate 1.0 mmol/L (0.7-2.1) Calcium Level 9.1 mg/dl (8.4-10.2) Total Bilirubin 0.6 mg/dl (0.2-1.3) Aspartate Amino Transf (AST/SGOT) 27 U/L (0-35) Alanine Aminotransferase (ALT/SGPT) 44 U/L (0-56) Alkaline Phosphatase 53 U/L (0-126) Troponin I < 0.012 ng/ml B-Type Natriuretic Peptide 76 pg/ml (0-100) Total Protein 7.0 g/dl (6.3-8.2) Albumin 3.9 g/dl (3.5-5.0) Influenza Virus Type A (PCR) Negative (NEGATIVE) Influenza Virus Type B (PCR) Negative (NEGATIVE) Urine Color Yellow Urine Clarity Clear Urine pH 5.0 pH (4.8-9.5) Urine Specific [place] 1.017 Urine Protein Negative mg/dL (NEGATIVE) Urine Glucose (UA) Negative mg/dL (NEGATIVE) Urine Ketones Negative mg/dL (NEGATIVE) Urine Blood Negative (NEGATIVE) Urine Nitrite Negative (NEGATIVE) Urine Bilirubin Negative (NEGATIVE) Urine Urobilinogen Negative mg/dL (0.2-1.9) Urine Leukocyte Esterase Negative (NEGATIVE) Urine RBC None /HPF (0-2/HPF) Urine WBC <1 /HPF (0-5/HPF) Urine Squamous Epithelial Cells None /LPF (</=FEW) Urine Bacteria Negative /HPF (NONE-FEW) Urine Mucus Few /HPF (NONE-FEW) Coagulation Test 07/22/18 22:09 Prothrombin Time 15.9 seconds Prothromb Time International Ratio 1.26 Activated Partial Thromboplast Time 31 seconds Urinalysis Test 07/22/18 22:45 Urine Color Yellow Urine Clarity Clear Urine pH 5.0 pH (4.8-9.5) Urine Specific [place] 1.017 Urine Protein Negative mg/dL (NEGATIVE) Urine Glucose (UA) Negative mg/dL (NEGATIVE) Urine Ketones Negative mg/dL (NEGATIVE) Urine Blood Negative (NEGATIVE) Urine Nitrite Negative (NEGATIVE) Urine Bilirubin Negative (NEGATIVE) Urine Urobilinogen Negative mg/dL (0.2-1.9) Urine Leukocyte Esterase Negative (NEGATIVE) Urine RBC None /HPF (0-2/HPF) Urine WBC <1 /HPF (0-5/HPF) Urine Squamous Epithelial Cells None /LPF (</=FEW) Urine Bacteria Negative /HPF (NONE-FEW) Urine Mucus Few /HPF (NONE-FEW) EKG/Imaging EKG Interpretation 12 lead EKG: Electronic atrial pacemaker paced rhythm, 62 bpm, QTC 403 Imaging Chest x-ray. No acute process or significant interval changes identified, please see official radiology report ED Course/Re-evaluation ED Course Patient is a 78-year-old male here with complaints of cough, shortness breath, fevers, chills started on Levaquin yesterday by his PCP. Patient has no prior history of underlying lung disease and denies smoking history. Patient reportedly had oxygen levels of 85%, came in with diffuse wheezing in all lung garcia. Cough and shortness breath started on and have persisted since that time. Chest x-ray showed no acute infectious process, consolidation or effusions. Patient's labs were unremarkable, patient did not have leukocytosis, lactate was normal, kidney function, electrolytes, VBG, BNP, troponin, urinalysis, coag panel were all found to be normal. Patient does have oxygen at home which she uses primarily at night. Patient was ambulated with pulse ox monitoring and was found to have oxygen saturations of 93-94% on 3 L of supplemental oxygen. Patient was started on prednisone burst therapy and advised to follow-up on Tuesday with his PCP. Patient was given scripts for a DuoNeb vials (3 given to go) since patient has a neb machine at home, prednisone 4 days. He was recommended to continue Levaquin until complete. Return precautions provided. Decision to Disposition Date: Jul 23, 2018 Decision to Disposition Time: 00:50 Depart Departure Latest Vital Signs Vital Signs Date Time Temp Pulse Resp B/P (MAP) Pulse Ox O2 Delivery O2 Flow Rate FiO2 07/23/18 00:00 92/38 (56) 07/22/18 23:50 73 16 97 Nasal Cannula 3 07/22/18 23:20 99.8 Impression: Primary Impression: Cough Additional Impression: Shortness of breath Condition: Improved Disposition: HOME OR SELF-CARE Referrals: LAUREN PUGA APRN [facility] (PCP) New Scripts Nebulizer (COMPACT COMPRESSOR NEBULIZER) 1 Each Each EACH MC PRN for WHEEZING, #1 Prov: MIKE MAYA S DO 07/23/18 Ipratropium/Albuterol Sulfate (IPRAT-ALBUT 0.5-3(2.5) MG/3 ML) 3 Ml Ampul.neb 3 ML IH Q6-8H PRN for WHEEZING, #30 VIAL Prov: MIKE MAYA DO 07/23/18 Prednisone (PREDNISONE) 50 Mg Tablet 50 MG PO QDAY for 4 Days, #4 TAB Prov: MIKE MAYA S DO 07/23/18 Patient Instructions: Dyspnea (GEN) Additional Instructions: Please continue your Levaquin prescription until complete. Please continue to use 3 L of oxygen via nasal cannula [id number]. You may use one nebulizer every 6-8 hours as needed for wheezing and shortness of breath. Please take pr ednisone 50 mg daily for the next 4 days. Please follow up closely with your family doctor on Tuesday. Please return immediately if you develop increasing shortness of breath, worsening cough, weakness, fevers, chills Problem Qualifiers MIKE MAYA DO Jul 22, 2018 22:01
[2018-07-22] MEDS ORDERED: NS(*) 0.9% 1000 ML BAG 1,000 ML IV ONE (22:11)
[2018-07-22] MEDS: ALBUTEROL/IPRATROPIUM 3 ML NEB NEB SCH ×3 (22:15→23:00)
[2018-07-22 22:21] LABS: PLATELET COUNT, AUTOMATED 146 K/uL (150-450)
[2018-07-22 22:31] LABS: INR 1.26
[2018-07-22] MEDS ORDERED: KETOROLAC 30 MG/ML VIAL IVP ONE (23:25)
[2018-07-23] MEDS ORDERED: predniSONE 20 MG TAB PO ONE ×2 (00:15→01:10)
[2018-07-23] MEDS ORDERED: ALBUTEROL 8 GM INHALER INH ONE (00:15)
[2018-07-23] MEDS ORDERED: IPRA3AMP10 IH (00:47)
[2018-07-23] MEDS ORDERED: PRED50TA22 PO (00:47)
[2018-07-23] MEDS ORDERED: NEBU1KIT30 MC (00:47)
[2018-07-23 00:55] VITALS: BP 96/55
[2018-07-23] MEDS ORDERED: ALBUTEROL/IPRATROPIUM 3 ML NEB NEB ONE ×3 (01:00)
--- NOTE | 2018-07-23 02:11 | EKG ---
FACILITY: [facility] [place]IENT NAME: EMILY DE LEON : [id number] MR: [id number] V: [id number] EXAM DATE: ORDERING PHYSICIAN: MIKE MAYA TECHNOLOGIST: DEVIN Test Reason : DYSPNEA Blood Pressure : / mmHG Vent. Rate : 062 BPM Atrial Rate : 062 BPM P-R Int : 228 ms QRS Dur : 100 ms QT Int : 398 ms P-R-T Axes : 109 042 010 degrees QTc Int : 403 ms Electronic atrial pacemaker When compared with ECG of 03-JUL-2018 08:51, No significant change was found Confirmed by VIET HINSON ([id number]) on 07/23/2018 6:16:54 AM Referred By: Confirmed By:VIET HINSON
--- NOTE | 2018-07-23 02:18 | RADIOLOGY IMAGING REPORT ---
FACILITY: [facility] - [place] PATIENT NAME: Kwesi Vasquez : 1940 MR: [id number] V: [id number] EXAM DATE: ORDERING PHYSICIAN: MIKE MAYA TECHNOLOGIST: Location: [facility] - [place] Patient: Kwesi Vasquez : 1940 Visit/Account:[id number] Date of Sevice: 07/22/2018 CHEST: Indication: Cough and chills. Technique: Frontal and lateral views were obtained. Comparison: 06/07/2017 Skeletal and soft tissue structures: There are stable degenerative changes and compression deformitie s in the spine. Bilateral old rib fractures and an old right clavicular fracture appear unchanged. No acute interval change is identified. Heart and mediastinum: The heart size is normal. Cardiac pacemaker leads appear unchanged. Lung garcia: Well expanded. No focal parenchymal consolidation or volume loss is identified. There ar e no signs of vascular congestion. Pleural spaces: Stable pleural thickening. No evidence of effusion or pneumothorax. Impression: No acute process or significant interval change is identified. Report Dictated By: Jacky Alvarez MD at 07/22/2018 11:10 PM Report E-Signed By: Jacky Alvarez MD at 07/22/2018 11:14 PM WSN:[id number]
[2018-07-24] MEDS ORDERED: CHOL10005 PO (10:07)
[2018-07-24] MEDS ORDERED: POTA20TA94 PO (10:07)
[2018-07-24] MEDS ORDERED: RIOC2.5T PO (10:07)
== END 2018-07-23 01:28 | disposition home or self-care (01) ==
LOC: ER 22:26
DX: R05 Cough (principal); R06.02 Shortness of breath; R09.02 Hypoxemia
CPT/HCPCS: 36415; 71046; 81001; 82803; 83605; 83880; 84484; 85025; 85610; 85730; 87040; 87502; 93005; 94640; 96361; 96374; 99284; J1885; J7030; J7512; J7620; 82040; 82247; 82310; 82374; 82435; 82565; 82947; 84075; 84132; 84155; 84295; 84450; 84460; 84520; J3535

== ENCOUNTER 2018-07-24 02:03 | Inpatient (IN) | payer MEDICARE ==
[~2018-07-24] VITALS: Ht 186.7 cm; Wt 99.9 kg
[~2018-07-24 02:03] MED LIST changes: +NEBU1KIT30 MC; +PRED50TA22 PO
--- NOTE | 2018-07-24 02:19 | ER Report ---
History and Physical Time Seen By MD: 02:16 Hx. of Stated Complaint: increased SOB today despite steroids and O2 at 3 L NC. HPI/ROS CHIEF COMPLAINT: short of breath and chest pain HISTORY OF PRESENT ILLNESS: This is an 78 year old male. He has been sick for about 4 days now[address] Had [address] Dr. Bermudez in the clinic 2 days ago, started on Flonase, DuoNebs and given a prescription for Levaquin to fill in about a week if not feeling better, but it looks like he started this right away. Was in the ER last night for shortness of breath, wheezing and fevers. Workup was negative other than the wheezing which seemed to be an upper respiratory infection, likely viral, with reactive airway disease. STarted on Prednisone and continuing on his other medications. Tonight seemed worsened. He is on 3 liters of oxygen for the last two nights. Tonight the nurses here in the ER say his wheezing and breathing is worse. He was very scared at home because of how bad his breathing was. Breathing treatments just did not seem to be helping much. He continues to have intermittent fevers. Negative influenza last night. Denies nausea or v omiting. Denies problems with bowels. Urinates frequently due to Furosemide, but otherwise no urinary changes. Chest pain tonight is a pressure feeling, worse when feeling short of breath. Allergies: Coded Allergies: Penicillins (Verified Allergy, Intermediate, HIVES, 07/24/18) cefazolin (Verified Allergy, Intermediate, HIVES, 07/24/18) Home Meds Active Scripts Nebulizer (COMPACT COMPRESSOR NEBULIZER) 1 Each Each, EACH MC PRN for WHEEZING, #1 Prov:MIKE MAYA DO 07/23/18 Ipratropium/Albuterol Sulfate (IPRAT-ALBUT 0.5-3(2.5) MG/3 ML) 3 Ml Ampul.neb, 3 ML IH Q6-8H PRN for WHEEZING, #30 VIAL Prov:MIKE MAYA DO 07/23/18 Prednisone (PREDNISONE) 50 Mg Tablet, 50 MG PO QDAY for 4 Days, #4 TAB Prov:MIKE MAYA DO 07/23/18 Fluticasone Prop 50 Mcg Ns (FLONASE 50 MCG NS) 16 Gm [place].susp, 2 SPRAYS NS QDAY for 30 Days, #1 BOT Prov:GERHARD BERMUDEZ MD 07/21/18 Levofloxacin 500 Mg Tab (LEVAQUIN 500 MG TAB) 500 Mg Tablet, 500 MG PO DAILY for 7 Days, #7 TAB Prov:GERHARD BERMUDEZ MD 07/21/18 Oxygen (OXYGEN) Inha, 2 L INH DAILY, #2 L Prov:LAUREN PUGA APRN LOGISTICS ASSISTANT-C 03/23/18 Reported Medications Cholecalciferol (Vitamin D3) (VITAMIN D3) 1,000 Unit Tablet, 2000 UNIT PO BID, TAB 07/24/18 Potassium Chloride (POTASSIUM CHLORIDE) 20 Meq Tab.er.prt, 20 MEQ PO QDAY 07/24/18 Riociguat (Adempas) 2.5 Mg Tablet, 2.5 MG PO TID 07/24/18 Furosemide (FUROSEMIDE) 40 Mg Tablet, 1 TAB PO DAILY, TAB 03/23/18 Atorvastatin Calcium (ATORVASTATIN CALCIUM) 40 Mg Tablet, 1 TAB PO QDAY, TAB 01/09/18 Apixaban (ELIQUIS) 5 Mg Tablet, 1 TAB PO BID 01/09/18 Aspirin (ASPIRIN) 81 Mg Tab.chew, 81 MG PO QDAY, TAB.CHEW 03/02/17 Discontinued Reported Medications Macitentan (Opsumit) 10 Mg Tablet 07/03/18 Potassium Chloride (KLOR-CON 10) 10 Meq Tablet.er, 1 TAB PO DAILY, TAB 03/23/18 Riociguat (Adempas) 1.5 Mg Tablet, 1 TAB PO TID 03/23/18 Amlodipine Besylate (NORVASC) 10 Mg Tablet, 1 TAB PO QDAY, TAB 08/18/17 Prednisone 10 Mg Tab (PREDNISONE 10 MG TAB) 10 Mg Tablet 03/23/18 Baclofen (BACLOFEN) 10 Mg Tablet, 1 TAB PO BID 03/23/18 Discontinued Scripts Ipratropium/Albuterol Sulfate (IPRAT-ALBUT 0.5-3(2.5) MG/3 ML) 3 Ml Ampul.neb, 3 ML IH QID PRN for DYSPNEA, #180 EA 1 Refill Prov:JAMAICA ESTRELLA MD 11/14/17 Reviewed Nurses Notes: Yes Hx Smoking: No Smoking Status: Never Smoker Exposure to Second Hand Smoke?: No Hx Substance Use Disorder: No Hx Alcohol Use: No Constitutional Vital Sign - Last 24 Hours 07/24/18 07/24/18 07/24/18 07/24/18 02:03 02:07 02:11 02:18 Temp 98.4 Pulse ??? 75 84 Resp 14 15 B/P (MAP) 141/46 (77) 141/46 Pulse Ox 92 99 O2 Delivery Nasal Cannula Nasal Cannula O2 Flow Rate 3 07/24/18 07/24/18 07/24/18 07/24/18 02:23 02:24 02:30 02:33 Pulse 72 74 ??? Resp 20 20 16 B/P (MAP) 119/68 (85) Pulse Ox 93 O2 Delivery Nasal Cannula O2 Flow Rate 3 07/24/18 07/24/18 07/24/18 07/24/18 02:48 02:53 03:00 03:08 Pulse 77 69 72 Resp 10 7 22 B/P (MAP) 121/63 (82) Pulse Ox 91 93 94 O2 Delivery Nasal Cannula Nasal Cannula Nasal Cannula O2 Flow Rate 3 3 3 07/24/18 07/24/18 07/24/18 07/24/18 03:23 03:53 04:00 04:01 Pulse 71 67 71 Resp 18 19 B/P (MAP) 125/72 (89) Pulse Ox 94 96 O2 Delivery Nasal Cannula Nasal Cannula O2 Flow Rate 3 3 07/24/18 07/24/18 07/24/18 07/24/18 04:06 04:21 04:30 04:36 Pulse 67 65 67 Resp 17 17 32 B/P (MAP) 116/75 (89) Pulse Ox 95 95 95 O2 Delivery Nasal Cannula Nasal Cannula Nasal Cannula O2 Flow Rate 3 3 3 Physical Exam General Appearance: The patient is alert. No acute distress. Non-toxic in appearance. Eyes: Pupils are equal, round. No pallor, injection or icterus. ENT: Mucous membranes are moist. Normal oral mucosa. Posterior oropharynx is normal. Neck: Supple and non tender. Respiratory: Lungs with wheezing, audible on walking into the room. Has some increase work of breathing, more so with exertion. Cardiovascular: Regular rate and rhythm. No murmurs, gallops or rubs. Normal capillary refill. Gastrointestinal: Abdomen is soft and non tender. Nondistended. Neurological: Alert and oriented x3. Skin: Warm and dry. DIFFERENTIAL DIAGNOSIS: After history and physical exam, differential diagnosis was considered for shortness of breath including but not limited to pulmonary infectious process, reactive airway disease, pulmonary embolus and congestive heart failure. Medical Decision Making Data Points Result Diagram: 07/24/1821007/24/18210 Laboratory Hematology Test 07/24/18 02:11 Red Blood Count 4.11 M/uL (4.00-5.60) Mean Corpuscular Volume 90.2 fL (80.0-96.0) Mean Corpuscular Hemoglobin 30.3 pg (26.0-33.0) Mean Corpuscular Hemoglobin Concent 33.5 g/dL (32.0-36.0) Red Cell Distribution Width 14.3 % (11.5-14.5) Mean Platelet Volume 8.8 fL (7.2-11.1) Neutrophils (%) (Auto) 91.4 % (39.4-72.5) Lymphocytes (%) (Auto) 5.6 % (17.6-49.6) Monocytes (%) (Auto) 2.9 % (4.1-12.4) Eosinophils (%) (Auto) 0.0 % (0.4-6.7) Basophils (%) (Auto) 0.1 % (0.3-1.4) Nucleated RBC Relative Count (auto) 0.0 /100WBC Neutrophils # (Auto) 7.5 K/uL (2.0-7.4) Lymphocytes # (Auto) 0.5 K/uL (1.3-3.6) Monocytes # (Auto) 0.2 K/uL (0.3-1.0) Eosinophils # (Auto) 0.0 K/uL (0.0-0.5) Basophils # (Auto) 0.0 K/uL (0.0-0.1) Nucleated RBC Absolute Count (auto) 0.00 K/uL Sodium Level 137 mmol/L (137-145) Potassium Level 4.1 mmol/L (3.5-5.0) Chloride Level 100 mmol/L (98-107) Carbon Dioxide Level 23 mmol/L (22-30) Blood Urea Nitrogen 22 mg/dl (9-21) Creatinine 1.00 mg/dl (0.66-1.25) Glomerular Filtration Rate Calc > 60.0 Random Glucose 165 mg/dl (75-110) Calcium Level 9.0 mg/dl (8.4-10.2) Total Bilirubin 0.4 mg/dl (0.2-1.3) Aspartate Amino Transf (AST/SGOT) 27 U/L (0-35) Alanine Aminotransferase (ALT/SGPT) 31 U/L (0-56) Alkaline Phosphatase 53 U/L (0-126) Troponin I < 0.012 ng/ml B-Type Natriuretic Peptide 121 pg/ml (0-100) Total Protein 7.0 g/dl (6.3-8.2) Albumin 4.0 g/dl (3.5-5.0) Chemistry Test 07/24/18 02:11 White Blood Count 8.2 k/uL (4.5-11.0) Red Blood Count 4.11 M/uL (4.00-5.60) Hemoglobin 12.4 g/dL (14.0-18.0) Hematocrit 37.1 % (42.0-52.0) Mean Corpuscular Volume 90.2 fL (80.0-96.0) Mean Corpuscular Hemoglobin 30.3 pg (26.0-33.0) Mean Corpuscular Hemoglobin Concent 33.5 g/dL (32.0-36.0) Red Cell Distribution Width 14.3 % (11.5-14.5) Platelet Count 134 K/uL (150-450) Mean Platelet Volume 8.8 fL (7.2-11.1) Neutrophils (%) (Auto) 91.4 % (39.4-72.5) Lymphocytes (%) (Auto) 5.6 % (17.6-49.6) Monocytes (%) (Auto) 2.9 % (4.1-12.4) Eosinophils (%) (Auto) 0.0 % (0.4-6.7) Basophils (%) (Auto) 0.1 % (0.3-1.4) Nucleated RBC Relative Count (auto) 0.0 /100WBC Neutrophils # (Auto) 7.5 K/uL (2.0-7.4) Lymphocytes # (Auto) 0.5 K/uL (1.3-3.6) Monocytes # (Auto) 0.2 K/uL (0.3-1.0) Eosinophils # (Auto) 0.0 K/uL (0.0-0.5) Basophils # (Auto) 0.0 K/uL (0.0-0.1) Nucleated RBC Absolute Count (auto) 0.00 K/uL Glomerular Filtration Rate Calc > 60.0 Calcium Level 9.0 mg/dl (8.4-10.2) Total Bilirubin 0.4 mg/dl (0.2-1.3) Aspartate Amino Transf (AST/SGOT) 27 U/L (0-35) Alanine Aminotransferase (ALT/SGPT) 31 U/L (0-56) Alkaline Phosphatase 53 U/L (0-126) Troponin I < 0.012 ng/ml B-Type Natriuretic Peptide 121 pg/ml (0-100) Total Protein 7.0 g/dl (6.3-8.2) Albumin 4.0 g/dl (3.5-5.0) EKG/Imaging EKG Interpretation 12 lead EKG: Rhythm: Electronic atrial pacemaker with occasional sinus beat, rate 80 Imaging CHEST PA AND LAT Additional pertinent History: SOB/chest pain COMPARISON STUDIES: 07/22/2018 FINDINGS: Support lines and catheters: Cardiac pacer leads from the left subclavian approach. Lungs and Pleura: No infiltrates or consolidations. No effusions. Heart and vasculature: Negative. Sarah and Mediastinum: Negative. Bones and Chest wall: Old healed right rib fractures. Status post anterior cervical fusion in the lower thoracic spine. Old healed deformity of the distal right clavicle. Anterior wedge compressions the T5 vertebral body of approximately 75%. Is unchanged when compared to the previous examinations. Upper Abdomen: Negative. IMPRESSION: 1. Negative chest for acute cardiopulmonary disease. No significant interval change compared to previous studies. Report Dictated By: Jose Antonio Lemons MD at 07/24/2018 2:[address] angiogram of the chest: Indication: Chest pain and dyspnea. Technique: Helical CT was performed through the chest following IV contrast enhancement with 75 cc of Isovue 370. Multiplanar reconstructions and MIP images are reviewed. One of the following dose optimization techniques was utilized in the performance of this exam: Automated exposure control; adjustment of the mA and/or kV according to the patient's size; or use of an iterative reconstruction technique. Specific details can be referenced in the facility's radiology CT exam operational policy. Comparison: 07/03/2018 Pulmonary arteries: There is uniform contrast enhancement. There are no signs of pulmonary emboli. Aorta and great vessels: There are stable atherosclerotic changes. There are no signs of aneurysm or dissection. Heart and pericardial soft tissues: There is stable cardiomegaly and coronary artery calcification. The cardiac pacemaker leads remain in satisfactory orientation. No pericardial effusion or soft tissue abnormality is identified. Mediastinal soft tissues: Unremarkable and unchanged. Lung garcia: Well-expanded. There is minimal linear scarring. No acute parenchymal process or consolidation is identified. Pleural spaces: No evidence of effusion, focal pleural thickening, or pne umothorax. Skeletal structures: There are stable postoperative, degenerative, and scoliotic changes in the spine. There are multiple old rib fractures. No acute skeletal deformity is identified. Upper abdomen: Unremarkable. IMPRESSION: No evidence of pulmonary emboli. No acute parenchymal or pleural process. Report Dictated By: Jacky Alvarez MD at 07/24/2018 4:07 AM ED Course/Re-evaluation Clinical Indication for ER IV: IV Access ED Course Patient was given DuoNeb breathing treatment on admission, seemed to improve a little bit, more so than what he felt at home. Still wheezing. Workup with labs and imaging and EKG is negative tonight. This appears to be a viral upper respiratory infection with reactive airway disease component. Given how bad the patient was home, we talked about options including returning home with more frequent breathing treatments versus admission. The patient is very nervous about what happened at home so I did call and speak with our hospitalist Dr. Gay who accepted the patient for admission Decision to Disposition Date: Jul 24, 2018 Decision to Disposition Time: 04:40 Depart Departure Latest Vital Signs Vital Signs Date Time Temp Pulse Resp B/P (MAP) Pulse Ox O2 Delivery O2 Flow Rate FiO2 07/24/18 04:36 67 32 95 Nasal Cannula 3 07/24/18 04:30 116/75 (89) 07/24/18 02:11 98.4 Impression: Primary Impression: Upper respiratory infection Additional Impression: Reactive airway disease that is not asthma Condition: Condition Unchanged Disposition: Admitted from ER Referrals: LAUREN PUGA APRN LOGISTICS ASSISTANT-C (PCP) Problem Qualifiers Primary Impression: Upper respiratory infection URI type: unspecified URI Qualified Codes: J06.9 - Acute upper respiratory infection, unspecified TEODORA CHAPPELL MD Jul 24, 2018 02:19
[2018-07-24] MEDS ORDERED: ALBUTEROL/IPRATROPIUM 3 ML NEB NEB ONE ×2 (02:25→04:40)
[2018-07-24 02:42] LABS: PLATELET COUNT, AUTOMATED 134 K/uL (150-450)
--- NOTE | 2018-07-24 02:42 | EKG ---
FACILITY: [facility] [place] PATIENT NAME: EMILY DE LEON : [id number] MR: [id number] V: [id number] EXAM DATE: ORDERING PHYSICIAN: TEODORA CHAPPELL TECHNOLOGIST: DEVIN Test Reason : DYSPNEA Blood Pressure : / mmHG Vent. Rate : 080 BPM Atrial Rate : 077 BPM P-R Int : 224 ms QRS Dur : 100 ms QT Int : 388 ms P-R-T Axes : 000 051 021 degrees QTc Int : 447 ms Electronic atrial pacemaker When compared with ECG of 22-JUL-2018 22:24, No significant change was found Confirmed by EVAN CARNES ([id number]) on 07/24/2018 6:45:44 AM Referred By: Confirmed By:EVAN CARNES
--- NOTE | 2018-07-24 03:21 | RADIOLOGY IMAGING REPORT ---
FACILITY: [facility] PATIENT NAME: Kwesi Vasquez : 1940 MR: [id number] V: [id number] EXAM DATE: ORDERING PHYSICIAN: TEODORA CHAPPELL TECHNOLOGIST: Location: [facility] [place] Patient: Kwesi Vasquez : 1940 Visit/Account:[id number] Date of Sevice: 07/24/2018 CHEST PA AND LAT Additional pertinent History: SOB/chest pain COMPARISON STUDIES: 07/22/2018 FINDINGS: Support lines and catheters: Cardiac pacer leads from the left subclavian approach. Lungs and Pleura: No infiltrates or consolidations. No effusions. Heart and vasculature: Negative. Sarah and Mediastinum: Negative. Bones and Chest wall: Old healed right rib fractures. Status post anterior cervical fusion in the lo wer thoracic spine. Old healed deformity of the distal right clavicle. Anterior wedge compressions th e T5 vertebral body of approximately 75%. Is unchanged when compared to the previous examinations. Upper Abdomen: Negative. IMPRESSION: 1. Negative chest for acute cardiopulmonary disease. No significant interval change compared to previ ous studies. Report Dictated By: Jose Antonio Lemons MD at 07/24/2018 2:52 AM Report E-Signed By: Jose Antonio Lemons MD at 07/24/2018 3:02 AM WSN:[id number]
[2018-07-24] MEDS ORDERED: NS(*) 0.9% 50 ML BAG 50 ML ONE (03:36)
[2018-07-24] MEDS ORDERED: IOPAMIDOL 76% 75 ML INFUS BTL 75 ML ONE (03:36)
--- NOTE | 2018-07-24 04:23 | RADIOLOGY IMAGING REPORT ---
FACILITY: [facility] PATIENT NAME: Kwesi Vasquez : 1940 MR: [id number] V: [id number] EXAM DATE: ORDERING PHYSICIAN: TEODORA CHAPPELL TECHNOLOGIST: Location: [facility] Patient: Kwesi Vasquez : 1940 Visit/Account:[id number] Date of Sevice: 07/24/2018 CT angiogram of the chest: Indication: Chest pain and dyspnea. Technique: Helical CT was performed through the chest following IV contrast enhancement with 75 cc of Isovue 370. Multiplanar reconstructions and MIP images are reviewed. One of the following dose optimization techniques was utilized in the performance of this exam: Autom ated exposure control; adjustment of the mA and/or kV according to the patient's size; or use of an i terative reconstruction technique. Specific details can be referenced in the facility's radiology CT exam operational policy. Comparison: 07/03/2018 Pulmonary arteries: There is uniform contrast enhancement. There are no signs of pulmonary emboli. Aorta and great vessels: There are stable atherosclerotic changes. There are no signs of aneurysm or dissection. Heart and pericardial soft tissues: There is stable cardiomegaly and coronary artery calcification. T he cardiac pacemaker leads remain in satisfactory orientation. No pericardial effusion or soft tissue abnormality is identified. Mediastinal soft tissues: Unremarkable and unchanged. Lung garcia: Well-expanded. There is minimal linear scarring. No acute parenchymal process or consoli dation is identified. Pleural spaces: No evidence of effusion, focal pleural thickening, or pneumothorax. Skeletal structures: There are stable postoperative, degenerative, and scoliotic changes in the spine . There are multiple old rib fractures. No acute skeletal deformity is identified. Upper abdomen: Unremarkable. IMPRESSION: No evidence of pulmonary emboli. No acute parenchymal or pleural process. Report Dictated By: Jacky Alvarez MD at 07/24/2018 4:07 AM Report E-Signed By: Jacky Alvarez MD at 07/24/2018 4:18 AM WSN:[id number]
[2018-07-24 05:02] VITALS: BP 130/63
[2018-07-24] MEDS ORDERED: INFLUENZA VIRUS VAC 0.5ML SYR IM ONLY ONE (05:45)
--- NOTE | 2018-07-24 06:05 | History & Physical ---
History of Present Illness Chief Complaint Shortness of breath History of Present Illness This patient presented to the emergency room complaining of shortness of breath. He started to have increased respiratory symptoms on Tuesday, and was seen by his primary care physician. He was started on levofloxacin, but was still feeling poorly on Tuesday. He went to the emergency room, and was started on oral prednisone. His symptoms continued to worsen over the next day. He reports feeling better after several breathing treatments in the ER this morning. History Problems: (1) Moderate to severe pulmonary hypertension (2) Recurrent deep venous thrombosis Status: Chronic (3) Pneumothorax, left Status: Chronic (4) History of pulmonary embolism (5) CAD (coronary artery disease) Home Meds Active Scripts Nebulizer (COMPACT COMPRESSOR NEBULIZER) 1 Each Each, EACH MC PRN for WHEEZING, #1 Prov:MIKE MAYA DO 07/23/18 Ipratropium/Albuterol Sulfate (IPRAT-ALBUT 0.5-3(2.5) MG/3 ML) 3 Ml Ampul.neb, 3 ML IH Q6-8H PRN for WHEEZING, #30 VIAL Prov:MIKE MAYA DO 07/23/18 Prednisone (PREDNISONE) 50 Mg Tablet, 50 MG PO QDAY for 4 Days, #4 TAB Prov:MIKE MAYA DO 07/23/18 Fluticasone Prop 50 Mcg Ns (FLONASE 50 MCG NS) 16 Gm [place].susp, 2 SPRAYS NS QDAY for 30 Days, #1 BOT Prov:GERHARD BERMUDEZ MD 07/21/18 Levofloxacin 500 Mg Tab (LEVAQUIN 500 MG TAB) 500 Mg Tablet, 500 MG PO DAILY for 7 Days, #7 TAB Prov:GERHARD BERMUDEZ MD 07/21/18 Oxygen (OXYGEN) Inha, 2 L INH DAILY, #2 L Prov:LAUREN PUGA APRN MAGNETIC TAPE COMPOSER OPERATOR-C 03/23/18 Reported Medications Macitentan (Opsumit) 10 Mg Tablet 07/03/18 Potassium Chloride (KLOR-CON 10) 10 Meq Tablet.er, 1 TAB PO DAILY, TAB 03/23/18 Furosemide (FUROSEMIDE) 40 Mg Tablet, 1 TAB PO DAILY, TAB 03/23/18 Riociguat (Adempas) 1.5 Mg Tablet, 1 TAB PO TID 03/23/18 Atorvastatin Calcium (ATORVASTATIN CALCIUM) 40 Mg Tablet, 1 TAB PO QDAY, TAB 01/09/18 Apixaban (ELIQUIS) 5 Mg Tablet, 1 TAB PO BID 01/09/18 Amlodipine Besylate (NORVASC) 10 Mg Tablet, 1 TAB PO QDAY, TAB 08/18/17 Aspirin (ASPIRIN) 81 Mg Tab.chew, 81 MG PO QDAY, TAB.CHEW 03/02/17 Discontinued Reported Medications Prednisone 10 Mg Tab (PREDNISONE 10 MG TAB) 10 Mg Tablet 03/23/18 Baclofen (BACLOFEN) 10 Mg Tablet, 1 TAB PO BID 03/23/18 Discontinued Scripts Ipratropium/Albuterol Sulfate (IPRAT-ALBUT 0.5-3(2.5) MG/3 ML) 3 Ml Ampul.neb, 3 ML IH QID PRN for DYSPNEA, #180 EA 1 Refill Prov:JAMAICA ESTRELLA MD 11/14/17 Allergies: Coded Allergies: Penicillins (Verified Allergy, Intermediate, HIVES, 07/24/18) cefazolin (Verified Allergy, Intermediate, HIVES, 07/24/18) Patient History: FH: brain aneurysm CHILD, Age:53 FH: colon cancer CHILD, Age:53 FH: heart attack MOTHER, FH: hypertension MOTHER, FH: stroke MOTHER, Hx Smoking: No Smoking Status: Never Smoker Exposure to Second Hand Smoke?: No Caffeine Intake: Coffee Caffeine/Cups Per Day: 6 cups each day Hx Alcohol Use: No Hx Substance Use Disorder: No Social Drug Use: Never Review of Systems All Systems Reviewed/Normal: Yes, Except as Noted Respiratory: Shortness of Breath, Wheezing Exam Vital Signs Vital Signs Date Time Temp Pulse Resp B/P (MAP) Pulse Ox O2 Delivery O2 Flow Rate FiO2 07/24/18 05:13 93 Nasal Cannula 3.0 07/24/18 05:02 98.6 78 17 130/63 (85) Neuro: No Gross deficits Eyes: PERRLA Cardiovascular: Regular Rate and Rhythm Respiratory: Other (Bilateral expiratory wheezing.) GI: Abd Soft and Non-Tender Extremities: No Edema Integumentary: No Cyanosis Medical Decision Making Data Points Result Diagram: 07/24/1821007/24/18210 EKG / Imaging Imaging Chest x-ray and CT chest reviewed. Assessment and Plan Problems: (1) COPD with acute exacerbation Assessment & Plan: He did present with increased shortness of breath and wheezing. His chest x-ray and CT scan were both negative for pneumonia. He has been placed on scheduled nebulizer treatments. We have continued his oral prednisone and levofloxacin. (2) Moderate to severe pulmonary hypertension Assessment & Plan: He is on chronic treatment with Adempas and Opsumit. He also takes Lasix for associated edema. (3) Essential hypertension Assessment & Plan: He is on chronic treatment with amlodipine. (4) CAD (coronary artery disease) Assessment & Plan: He is on chronic treatment with aspirin. (5) History of pulmonary embolism Assessment & Plan: He is on chronic treatment with apixaban. Copies to: GERHARD BERMUDEZ MD ; Venous Thromboembolism Antithrombotics Is Pt On Any Antithrombotics?: Yes Exam Sepsis Risk: No Definite Risk EVAN CARNES DO Jul 24, 2018 06:05
[2018-07-24] MEDS: ALBUTEROL/IPRATROPIUM 3 ML NEB NEB SCH ×5 (06:12→21:27)
[2018-07-24 08:09] VITALS: BP 123/86
[2018-07-24] MEDS: ALBUTEROL 2.5 MG/3 ML NEB NEB PRN ×2 (08:29→15:53)
[2018-07-24] MEDS ORDERED: predniSONE 10 MG TAB PO SCH (09:00)
[2018-07-24] MEDS ORDERED: PATIENT'S OWN MED PO SCH ×2 (09:00)
[2018-07-24] MEDS ORDERED: amLODIPine BESYL(*) 5 MG TAB PO SCH (09:00)
[2018-07-24] MEDS: RIOCIGUAT 2.5 MG PO SCH ×3 (09:42→21:04)
[2018-07-24] MEDS: FLUTICASONE PROP 0.05% 16 GM ENA SCH (09:42)
[2018-07-24] MEDS: ASPIRIN 81 MG CHEW PO SCH (09:43)
[2018-07-24] MEDS: APIXABAN 2.5 MG TABLET PO SCH ×2 (09:44→21:04)
[2018-07-24] MEDS: FUROSEMIDE 40 MG TAB PO SCH (09:45)
[2018-07-24] MEDS: LEVOFLOXACIN 500 MG TAB PO SCH (09:45)
[2018-07-24] MEDS ORDERED: POTA20TA94 PO (10:07)
[2018-07-24] MEDS ORDERED: CHOL10005 PO (10:07)
[2018-07-24] MEDS ORDERED: RIOC2.5T PO (10:07)
[2018-07-24] MEDS ORDERED: methylPREDNIS SUCC 125 MG/2ML IVP ONE (11:25)
[2018-07-24 12:32] VITALS: BP 117/75
[2018-07-24 14:31] VITALS: Ht 186.7 cm; Wt 99.9 kg
[2018-07-24 16:57] VITALS: BP 121/68
[2018-07-24] MEDS: methylPREDNIS SUCC 125 MG/2ML IVP SCH (18:21)
[2018-07-24] MEDS: ACETAMINOPHEN 325 MG TAB PO PRN (18:21)
[2018-07-24 19:06] VITALS: BP 120/66
[2018-07-24] MEDS: ATORVASTATIN 40 MG TAB PO SCH (21:03)
[2018-07-24] MEDS: MELATONIN 3 MG TAB PO SCH (21:04)
[2018-07-24 23:14] VITALS: BP 108/60
[2018-07-25] MEDS: methylPREDNIS SUCC 125 MG/2ML IVP SCH ×4 (00:09→17:28)
[2018-07-25 02:56] VITALS: BP 127/75
[2018-07-25] MEDS: ALBUTEROL/IPRATROPIUM 3 ML NEB NEB SCH ×5 (05:37→20:45)
[2018-07-25 05:57] LABS: PLATELET COUNT, AUTOMATED 119 K/uL (150-450)
[2018-07-25 07:39] VITALS: BP 130/73
[2018-07-25] MEDS: FLUTICASONE PROP 0.05% 16 GM ENA SCH (09:24)
[2018-07-25] MEDS: APIXABAN 2.5 MG TABLET PO SCH ×2 (09:25→20:24)
[2018-07-25] MEDS: RIOCIGUAT 2.5 MG PO SCH ×3 (09:25→20:24)
[2018-07-25] MEDS: ASPIRIN 81 MG CHEW PO SCH (09:25)
[2018-07-25] MEDS: FUROSEMIDE 40 MG TAB PO SCH (09:25)
[2018-07-25] MEDS: POTASSIUM CHL 20 MEQ TABCR PO SCH (10:02)
[2018-07-25] MEDS: LEVOFLOXACIN 500 MG TAB PO SCH (10:03)
[2018-07-25] MEDS: CHOLECALCIFEROL 1000 UNIT TAB PO SCH ×2 (10:03→20:24)
--- NOTE | 2018-07-25 10:40 | Hospitalist Progress Note ---
Subjective Progress Notes Subjective This patient was admitted for COPD. He had increased shortness of breath overnight. Patient Complains of: Cardiovascular: No: Chest Pain Respiratory: Shortness of Breath Physical Exam Vital Signs Date Time Temp Pulse Resp B/P (MAP) Pulse Ox O2 Delivery O2 Flow Rate FiO2 07/25/18 10:07 92 Nasal Cannula 2.0 07/25/18 10:07 69 20 07/25/18 07:39 98.5 130/73 (92) Intake and Output 07/25/18 07:00 Intake Total 1072 ml Balance 1072 ml Intake Oral 1072 ml # Voids 1 Cardiovascular: Regular Rate and Rhythm Respiratory: Other (Bilateral wheezes present.) Result Diagram: 07/25/1853307/25/18533 Assessment and Plan Problems: (1) COPD with acute exacerbation Assessment & Plan: He did present with increased shortness of breath and wheezing. His chest x-ray and CT scan were both negative for pneumonia. He has been placed on scheduled nebulizer treatments. He was started on levofloxacin prior to admission, and this has been discontinued. He is on IV steroids. (2) Moderate to severe pulmonary hypertension Assessment & Plan: He is on chronic treatment with Adempas and Opsumit. He also takes Lasix for associated edema. (3) Essential hypertension Assessment & Plan: He is on chronic treatment with amlodipine. (4) CAD (coronary artery disease) Assessment & Plan: He is on chronic treatment with aspirin. (5) History of pulmonary embolism Assessment & Plan: He is on chronic treatment with apixaban. Exam Sepsis Risk: No Definite Risk EVAN CARNES DO Jul 25, 2018 10:40
[2018-07-25 12:02] VITALS: BP 124/62
--- NOTE | 2018-07-25 14:18 | Antimicrobial Stewardship ---
Antimicrobial Stewardship Empiricly appropriate: Yes Significant PMH: Yes (COPD) Support empiric regimen: Yes Comment Was seen as an outpatient on 07/21/18, given a script for levofloxacin if not improving, pt filled and started right away per report. Determine cumulative duration: Today is day 5 of treatment Determine standard duration: 5-7days Comment 78 yo M with a history of COPD, pulmonary HTN, who presented to the ED with SOB. Started levofloxacin on 07/21/18, today is day 5. WBC have been wnl and afebrile. CT and chest x ray do not indicate a pneumonia, completed 5 days of therapy, discontinuation of therapy recommended. Levofloxacin stopped on 07/25/18. Katharine Crouch, PharmD, BCOP KATHARINE CROUCH Jul 25, 2018 14:18
[2018-07-25 15:21] VITALS: BP 109/58
[2018-07-25] MEDS: ACETAMINOPHEN 325 MG TAB PO PRN (17:10)
[2018-07-25 19:03] VITALS: BP 111/65
[2018-07-25] MEDS: ATORVASTATIN 40 MG TAB PO SCH (20:24)
[2018-07-25] MEDS: MELATONIN 3 MG TAB PO SCH (20:24)
[2018-07-26] MEDS: methylPREDNIS SUCC 125 MG/2ML IVP SCH ×4 (00:35→17:33)
[2018-07-26 00:36] VITALS: BP 123/68
[2018-07-26 03:04] VITALS: BP 115/68
[2018-07-26] MEDS: ALBUTEROL/IPRATROPIUM 3 ML NEB NEB SCH ×5 (05:15→21:38)
[2018-07-26] MEDS: ALBUTEROL 2.5 MG/3 ML NEB NEB PRN (05:15)
--- NOTE | 2018-07-26 08:48 | Antimicrobial Stewardship ---
Antimicrobial Stewardship Empiricly appropriate: Yes Support empiric regimen: Yes Comment Levofloxacin restarted on 07/26/17- 500mg po daily--> today is day 3, continue for 7 days total Renal/Hepatic dosing: Yes IV to PO Opportunity: Yes Comment Oral therapy is appropriate Determine cumulative duration: Today is day 3 Determine standard duration: Complete 7 days Comment Discussed with patient, he did not fill levofloxacin as an outpatient, therefor his therapy will be restarted with levofloxacin 500mg po daily with the plan to complete 7 days. Katharine Crouch, PharmD, OP KATHARINE CROUCH Jul 26, 2018 08:48
[2018-07-26 09:16] VITALS: BP 115/64
[2018-07-26] MEDS: CHOLECALCIFEROL 1000 UNIT TAB PO SCH ×2 (09:20→20:39)
[2018-07-26] MEDS: LEVOFLOXACIN 500 MG TAB PO SCH (09:20)
[2018-07-26] MEDS: FUROSEMIDE 40 MG TAB PO SCH (09:20)
[2018-07-26] MEDS: APIXABAN 2.5 MG TABLET PO SCH ×2 (09:20→20:39)
[2018-07-26] MEDS: POTASSIUM CHL 20 MEQ TABCR PO SCH (09:21)
[2018-07-26] MEDS: ASPIRIN 81 MG CHEW PO SCH (09:21)
[2018-07-26] MEDS: RIOCIGUAT 2.5 MG PO SCH ×3 (09:21→20:39)
[2018-07-26] MEDS: FLUTICASONE PROP 0.05% 16 GM ENA SCH (09:21)
[2018-07-26] MEDS: guaiFENesin/P-EPHED 1 EA TABCR PO SCH ×2 (10:19→20:39)
[2018-07-26 12:15] VITALS: BP 108/76
--- NOTE | 2018-07-26 13:50 | Hospitalist Progress Note ---
Subjective Progress Notes Subjective 78M admitted for acute on chronic hypoxic respiratory failure. RYANN overnight, slow to recover after recent insult. Patient Complains of: Cardiovascular: No: Chest Pain, Palpitations Respiratory: Cough, Congestion, Shortness of Breath, Wheezing Physical Exam Vital Signs Date Time Temp Pulse Resp B/P (MAP) Pulse Ox O2 Delivery O2 Flow Rate FiO2 07/26/18 12:15 97.7 68 24 108/76 (87) 94 Nasal Cannula 3.0 Intake and Output 07/26/18 07:00 Intake Total 1220 ml Balance 1220 ml Intake Oral 1220 ml # Voids 1 General Appearance: Alert, Awake, No Acute Distress, Afebrile Neck: No Masses Cardiovascular: Normal Rhythm & Peripheral Pulses Respiratory: No Respiratory Distress (+ wheezing) GI: Soft and Non-Tender Musculoskeletal: No Weakness/Pain Extremities: Soft and Non Tender, Warm, Pulses, Perfused; No Edema Result Diagram: 07/25/18 0534 07/25/1834 Assessment and Plan Problems: (1) COPD with acute exacerbation Assessment & Plan: He did present with increased shortness of breath and wheezing. His chest x-ray and CT scan were both negative for pneumonia. He has been placed on scheduled nebulizer treatments. He was started on levofloxacin and will continue for 5 days therapy. He is on IV steroids. (2) Moderate to severe pulmonary hypertension Assessment & Plan: He is on chronic treatment with Adempas and Opsumit. He also takes Lasix for associated edema. (3) Essential hypertension Assessment & Plan: He is on chronic treatment with amlodipine. (4) CAD (coronary artery disease) Assessment & Plan: He is on chronic treatment with aspirin. (5) History of pulmonary embolism Assessment & Plan: He is on chronic treatment with apixaban. Exam Sepsis Risk: No Definite Risk SERRANO KEITH FINNEY DO Jul 26, 2018 13:50
[2018-07-26 15:08] VITALS: BP 119/64
[2018-07-26 19:41] VITALS: BP 129/75
[2018-07-26] MEDS: ATORVASTATIN 40 MG TAB PO SCH (20:39)
[2018-07-26] MEDS: MELATONIN 3 MG TAB PO SCH (20:39)
[2018-07-27 00:38] VITALS: BP 116/62
[2018-07-27] MEDS: methylPREDNIS SUCC 125 MG/2ML IVP SCH ×2 (00:39→05:53)
[2018-07-27 03:38] VITALS: BP 135/77
[2018-07-27] MEDS: ALBUTEROL/IPRATROPIUM 3 ML NEB NEB SCH ×5 (04:10→21:37)
[2018-07-27 07:48] VITALS: BP 141/89
[2018-07-27] MEDS: RIOCIGUAT 2.5 MG PO SCH ×3 (08:15→20:32)
[2018-07-27] MEDS: APIXABAN 2.5 MG TABLET PO SCH ×2 (08:15→20:31)
[2018-07-27] MEDS: FLUTICASONE PROP 0.05% 16 GM ENA SCH (08:15)
[2018-07-27] MEDS: ASPIRIN 81 MG CHEW PO SCH (08:15)
[2018-07-27] MEDS: guaiFENesin/P-EPHED 1 EA TABCR PO SCH ×2 (08:15→20:32)
[2018-07-27] MEDS: CHOLECALCIFEROL 1000 UNIT TAB PO SCH ×2 (08:15→20:31)
[2018-07-27] MEDS: POTASSIUM CHL 20 MEQ TABCR PO SCH (08:15)
[2018-07-27] MEDS: FUROSEMIDE 40 MG TAB PO SCH (08:15)
[2018-07-27] MEDS: LEVOFLOXACIN 500 MG TAB PO SCH (10:09)
--- NOTE | 2018-07-27 11:37 | Hospitalist Progress Note ---
Subjective Progress Notes Subjective He reports some improvements, but still some dyspnea and wheezing. Physical Exam Vital Signs Date Time Temp Pulse Resp B/P (MAP) Pulse Ox O2 Delivery O2 Flow Rate FiO2 07/27/18 09:16 73 16 07/27/18 09:04 90 Nasal Cannula 3.0 07/27/18 07:48 97.7 141/89 (106) Intake and Output 07/27/18 07:00 Intake Total 480 ml Balance 480 ml Intake Oral 480 ml # Voids 4 General Appearance: Alert, Awake Cardiovascular: Regular Rate and Rhythm Respiratory: Other (soft expiratory wheezes heard best over sternum/manubrium area) Result Diagram: 07/25/1853307/25/18533 Assessment and Plan Problems: (1) COPD with acute exacerbation Assessment & Plan: He did present with increased shortness of breath and wheezing. His chest x-ray and CT scan were both negative for infiltrate/pneumonia. He has been placed on scheduled nebulizer treatments. He was started on levofloxacin and will continue for 7 days therapy. He is also on IV steroids and will be transitioned to oral. (2) Moderate to severe pulmonary hypertension Assessment & Plan: He is on chronic treatment with Adempas and Opsumit. He also takes Lasix for associated edema. (3) Essential hypertension Assessment & Plan: He is on chronic treatment with amlodipine. (4) CAD (coronary artery disease) Assessment & Plan: He is on chronic treatment with aspirin. (5) History of pulmonary embolism Assessment & Plan: He is on chronic treatment with apixaban. Exam Sepsis Risk: No Definite Risk VIET HINSON MD Jul 27, 2018 11:37
[2018-07-27 14:50] VITALS: BP 126/67
[2018-07-27] MEDS: predniSONE 20 MG TAB PO SCH (17:47)
[2018-07-27] MEDS: ACETAMINOPHEN 325 MG TAB PO PRN (19:31)
[2018-07-27 20:29] VITALS: BP 117/77
[2018-07-27] MEDS: ATORVASTATIN 40 MG TAB PO SCH (20:31)
[2018-07-27] MEDS: MELATONIN 3 MG TAB PO SCH (20:32)
[2018-07-27 23:43] VITALS: BP 126/66
[2018-07-28 02:20] VITALS: BP 117/69
[2018-07-28] MEDS: ALBUTEROL/IPRATROPIUM 3 ML NEB NEB SCH ×3 (02:24→10:40)
[2018-07-28 07:00] VITALS: BP 116/82
[2018-07-28] MEDS: RIOCIGUAT 2.5 MG PO SCH (08:10)
[2018-07-28] MEDS: predniSONE 20 MG TAB PO SCH (08:10)
[2018-07-28] MEDS: FLUTICASONE PROP 0.05% 16 GM ENA SCH (08:10)
[2018-07-28] MEDS: ASPIRIN 81 MG CHEW PO SCH (08:10)
[2018-07-28] MEDS: FUROSEMIDE 40 MG TAB PO SCH (08:11)
[2018-07-28] MEDS: APIXABAN 2.5 MG TABLET PO SCH (08:11)
[2018-07-28] MEDS: POTASSIUM CHL 20 MEQ TABCR PO SCH (08:11)
[2018-07-28] MEDS: CHOLECALCIFEROL 1000 UNIT TAB PO SCH (08:11)
[2018-07-28] MEDS: guaiFENesin/P-EPHED 1 EA TABCR PO SCH (08:11)
[2018-07-28] MEDS: LEVOFLOXACIN 500 MG TAB PO SCH (10:25)
[2018-07-28] MEDS ORDERED: IPRA3AMP10 IH (10:58)
[2018-07-28] MEDS ORDERED: LEVO-85 PO (10:58)
[2018-07-28] MEDS ORDERED: PRED-1 PO (10:58)
--- NOTE | 2018-07-28 11:08 | Hospitalist Depart ---
Discharge Summary Reason for Hosp/Final Diag: (1) COPD with acute exacerbation Hospital Course & Plan: He did present with increased shortness of breath and wheezing. His chest x-ray and CT scan were both negative for infiltrate/pneumonia. He has been placed on scheduled nebulizer treatments. He was started on levofloxacin and will continue for 7 days therapy. He will be transitioned to oral steroids from IV. He will be placed on a long taper. (2) Moderate to severe pulmonary hypertension Hospital Course & Plan: He is on chronic treatment with Adempas and Opsumit. He also takes Lasix for associated edema. (3) Essential hypertension Hospital Course & Plan: He is on chronic treatment with amlodipine. (4) CAD (coronary artery disease) Hospital Course & Plan: He is on chronic treatment with aspirin. (5) History of pulmonary embolism Hospital Course & Plan: He is on chronic treatment with apixaban. Departure Latest Vital Signs Vital Signs 07/28/18 07/28/18 07:00 10:41 Temp 98.2 Pulse 63 Resp 16 B/P (MAP) 116/82 (93) Pulse Ox 92 O2 Delivery Nasal Cannula O2 Flow Rate 2.0 Weight (Pounds): 220 Weight (Ounces): 3.0 Result Diagram: 07/25/1853307/25/18533 Condition: Improved Discharge: Home, Self Care Discharge Instructions Home Meds Active Scripts Prednisone 10 Mg Tab (PREDNISONE 10 MG TAB) 10 Mg Tablet, 10 MG PO DIRECTED, #55 TAB Take 6 tablets for 1 day, then 5 tablets for 3 days, then 4 tablets for 3 days, then 3 tablets for 3 days, then 2 tablets for 2 days, then 1 tablet for 3 days, then stop. Prov:DYLAN VIRGENP 07/28/18 Levofloxacin 500 Mg Tab (LEVAQUIN 500 MG TAB) 500 Mg Tablet, 500 MG PO QDAY, #2 TAB Prov:DYLAN VIRGEN 07/28/18 Ipratropium/Albuterol Sulfate (IPRAT-ALBUT 0.5-3(2.5) MG/3 ML) 3 Ml Ampul.neb, 3 ML IH Q6-8H PRN for WHEEZING, #30 VIAL Prov:DYLAN VIRGEN 07/28/18 Nebulizer (COMPACT COMPRESSOR NEBULIZER) 1 Each Each, EACH MC PRN for WHEEZING, #1 Prov:MIKE MAYA S DO 07/23/18 Fluticasone Prop 50 Mcg Ns (FLONASE 50 MCG NS) 16 Gm [place].susp, 2 SPRAYS NS QDAY for 30 Days, #1 BOT Prov:GERHARD BERMUDEZ MD 07/21/18 Oxygen (OXYGEN) Inha, 2 L INH DAILY, #2 L Prov:LAUREN PUGA APRN REHAB DEPARTMENT MANAGER-C 03/23/18 Reported Medications Cholecalciferol (Vitamin D3) (VITAMIN D3) 1,000 Unit Tablet, 2000 UNIT PO BID, TAB 07/24/18 Potassium Chloride (POTASSIUM CHLORIDE) 20 Meq Tab.er.prt, 20 MEQ PO QDAY 07/24/18 Riociguat (Adempas) 2.5 Mg Tablet, 2.5 MG PO TID 07/24/18 Furosemide (FUROSEMIDE) 40 Mg Tablet, 1 TAB PO DAILY, TAB 03/23/18 Atorvastatin Calcium (ATORVASTATIN CALCIUM) 40 Mg Tablet, 1 TAB PO QDAY, TAB 01/09/18 Apixaban (ELIQUIS) 5 Mg Tablet, 1 TAB PO BID 01/09/18 Aspirin (ASPIRIN) 81 Mg Tab.chew, 81 MG PO QDAY, TAB.CHEW 03/02/17 Discontinued Reported Medications Macitentan (Opsumit) 10 Mg Tablet 07/03/18 Potassium Chloride (KLOR-CON 10) 10 Meq Tablet.er, 1 TAB PO DAILY, TAB 03/23/18 [place] (Adempas) 1.5 Mg Tablet, 1 TAB PO TID 03/23/18 Amlodipine Besylate (NORVASC) 10 Mg Tablet, 1 TAB PO QDAY, TAB 08/18/17 Prednisone 10 Mg Tab (PREDNISONE 10 MG TAB) 10 Mg Tablet 03/23/18 Baclofen (BACLOFEN) 10 Mg Tablet, 1 TAB PO BID 03/23/18 Discontinued Scripts Prednisone (PREDNISONE) 50 Mg Tablet, 50 MG PO QDAY for 4 Days, #4 TAB Prov:MIKE MAYA DO 07/23/18 Levofloxacin 500 Mg Tab (LEVAQUIN 500 MG TAB) 500 Mg Tablet, 500 MG PO DAILY for 7 Days, #7 TAB Prov:GERHARD BERMUDEZ MD 07/21/18 Ipratropium/Albuterol Sulfate (IPRAT-ALBUT 0.5-3(2.5) MG/3 ML) 3 Ml Ampul.neb, 3 ML IH QID PRN for DYSPNEA, #180 EA 1 Refill Prov:JAMAICA ESTRELLA MD 11/14/17 Diet: Regular Activity: As Tolerated Special Instructions: Continue antibiotics and steroids until completed. Follow up with your primary care provider in 1-2 weeks. Use oxygen at all times. Copies to: LAUREN PUGA APRN REHAB DEPARTMENT MANAGER-C ; Venous Thromboembolism Antithrombotics Is Pt On Any Antithrombotics?: Yes DYLAN VIRGEN REHAB DEPARTMENT MANAGER Jul 28, 2018 11:08
[2018-07-28 11:18] VITALS: BP 129/70
== END 2018-07-28 13:42 | disposition home or self-care (01) | DRG 190 ==
LOC: ER 03:39 → MED 04:39
PROVIDERS: ADMIT Family Medicine; ATTEND Family Medicine
DX: J44.1 Chronic obstructive pulmonary disease with (acute) exacerbation (principal); J96.21 Acute and chronic respiratory failure with hypoxia; I10 Essential (primary) hypertension; I25.10 Atherosclerotic heart disease of native coronary artery without angina pectoris; Z86.718 Personal history of other venous thrombosis and embolism; Z86.711 Personal history of pulmonary embolism; I27.20 Pulmonary hypertension, unspecified; Z79.01 Long term (current) use of anticoagulants; Z95.0 Presence of cardiac pacemaker; Z90.49 Acquired absence of other specified parts of digestive tract; Z98.1 Arthrodesis status; Z88.0 Allergy status to penicillin; Z88.8 Allergy status to other drugs, medicaments and biological substances
CPT/HCPCS: 36415; 71046; 71275; 81001; 82040; 82247; 82310; 82374; 82435; 82565; 82803; 82947; 83605; 83880; 84075; 84132; 84155; 84295; 84450; 84460; 84484; 84520; 85025; 85610; 85730; 87040; 87502; 93005; 94640; 94667; 94668; 96361; 96374; 99284; 99285; J1885; J2930; J3535; J7030; J7050; J7512; J7613; Q9967

== ENCOUNTER → 2018-08-07 | Outpatient (CLI) | payer MEDICARE ==
[2018-07-24 14:31] VITALS: BMI 28.6
[~2018-08-07] MED LIST changes: -AMLO-111 PO; +AMLO-125 PO; +CHOL10005 PO; +POTA20TA94 PO; +PRED-1 PO; +RIOC2.5T PO
[2018-08-07 15:02] LABS: PLATELET COUNT, AUTOMATED 163 K/uL (150-450)
--- NOTE | 2018-08-07 15:27 | RADIOLOGY IMAGING REPORT ---
FACILITY: [facility] PATIENT NAME: Kwesi Vasquez : 1940 MR: [id number] V: [id number] EXAM DATE: ORDERING PHYSICIAN: ERIKA LIRA TECHNOLOGIST: Location: [facility] [place] Patient: Kwesi Vasquez : 1940 Visit/Account:[id number] Date of Sevice: 08/07/2018 Study: Frontal and lateral views of the chest Indication: Cough, shortness of breath Comparison study: July 24, 2018 Findings: PA and lateral views of the chest demonstrate no evidence of acute infiltrate. There is no evidence of pleural effusion. There is no evidence of pneumothorax. The mediastinal, cardiac, and diaphragmatic contours are unremarkable. The patient is status post cervical spine surgery. There is a permanent pacemaker present. The three pacemaker leads are unchanged in appearance as com pared to the previous study. IMPRESSION: No acute cardiopulmonary abnormality. There is no change as compared to the previous goyo dy. Report Dictated By: Efra Rodriguez at 08/07/2018 3:20 PM Report E-Signed By: Efra Rodriguez at 08/07/2018 3:22 PM WSN:[id number]
== END ==
LOC: RAD 14:27
PROVIDERS: ATTEND Nurse Practitioner Primary Care
DX: R06.02 Shortness of breath (principal)
CPT/HCPCS: 36415; 71046; 82040; 82247; 82310; 82374; 82435; 82565; 82947; 83880; 84075; 84132; 84155; 84295; 84450; 84460; 84520; 85025

== ENCOUNTER → 2018-08-22 | Outpatient (CLI) | payer MEDICARE ==
[2018-07-24 14:31] VITALS: BMI 28.6
[~2018-08-22] MED LIST changes: +BENZ200C15 PO; +FLUT1DIS28 IH
== END ==
LOC: LAB 08-21 15:45
PROVIDERS: ATTEND Internal Medicine Cardiovascular Disease
DX: I27.20 Pulmonary hypertension, unspecified (principal)
CPT/HCPCS: 36415; 85027

== ENCOUNTER 2018-08-31 15:00 | Outpatient (RCR) | payer MEDICARE ==
[2018-07-24 14:31] VITALS: BMI 28.6
== END 2018-08-31 18:00 | disposition home or self-care (01) ==
LOC: CARD 15:00
PROVIDERS: ATTEND Nurse Practitioner Family
DX: I27.20 Pulmonary hypertension, unspecified (principal)
CPT/HCPCS: G0239 ×6

== ENCOUNTER → 2018-09-25 | Outpatient (CLI) | payer MEDICARE ==
[2018-07-24 14:31] VITALS: BMI 28.6
== END ==
LOC: LAB 09:34
PROVIDERS: ATTEND Internal Medicine Cardiovascular Disease
DX: I27.0 Primary pulmonary hypertension (principal)
CPT/HCPCS: 36415; 82310; 82374; 82435; 82565; 82947; 83880; 84132; 84295; 84520; 85027

== ENCOUNTER 2018-09-29 19:05 | Emergency (ER) | payer MEDICARE ==
[2018-07-24 14:31] VITALS: Wt 99.9 kg
--- NOTE | 2018-09-29 19:14 | ER Report ---
History and Physical Time Seen By MD: 19:13 HPI/ROS CHIEF COMPLAINT: Shortness of breath and wheezing 78 year old male presents to ED with shortness of breath and wheezing. Patient reports that he had a cold that started on Tuesday with runny nose, stuffy nose, productive cough. States that his shortness of breath has worsened since then. He checked his O2 at home this evening and SpO2 was 75% prior to putting his oxygen on. He also did a nebulizer treatment about 1714. Patient normally wears O2 3L NC at home. He is supposed to wear it at all times but does not. Associated symptoms includes chills with fever that started today. Patient is followed by a pick up and delivery driver and pet caregiver. HISTORY OF PRESENT ILLNESS: REVIEW OF SYSTEMS: Constitutional: Reports fever and chills. Eyes: No discharge, not injected. ENT: No sore throat. Cardiovascular: No palpitations. Denies edema to lower extremities Respiratory: Reports chest pain that occurs when taking deep breaths and coughs. Reports wheezing, productive cough, SOB. Gastrointestinal: Denies nausea, vomiting, diarrhea, constipation. Genitourinary: No hematuria. Skin: No rashes. Neurological: No headache. Reports dizziness upon standing, especially when he gets up from bed in the morning. Reports the dizziness lasts approximately 10 minutes. Denies falls or syncope. Allergies: Coded Allergies: Penicillins (Verified Allergy, Intermediate, HIVES, 09/29/18) cefazolin (Verified Allergy, Intermediate, HIVES, 09/29/18) Home Meds Active Scripts Prednisone (PREDNISONE) 50 Mg Tablet, 50 MG PO QDAY for 5 Days, #5 TAB Prov:MIKE MAYA DO 09/29/18 Oseltamivir Phosphate (TAMIFLU) 75 Mg Cap, 75 MG PO BID for 5 Days, #10 CAP 0 Refills Prov:MIKE MAYA DO 09/29/18 Levofloxacin 500 Mg Tab (LEVAQUIN 500 MG TAB) 500 Mg Tablet, 500 MG PO QDAY, #2 TAB Prov:DYLAN VIRGEN INTERNET RESEARCHER 07/28/18 Ipratropium/Albuterol Sulfate (IPRAT-ALBUT 0.5-3(2.5) MG/3 ML) 3 Ml Ampul.neb, 3 ML IH Q6-8H PRN for WHEEZING, #30 VIAL Prov:DYLAN VIRGEN INTERNET RESEARCHER 07/28/18 Nebulizer (COMPACT COMPRESSOR NEBULIZER) 1 Each Each, EACH MC PRN for WHEEZING, #1 Prov:MAYA,MIKE Chauhan DO 07/23/18 Oxygen (OXYGEN) Inha, 2 L INH DAILY, #2 L Prov:LAUREN PUGA APRN INTERNET RESEARCHER-C 03/23/18 Reported Medications Dexamethasone (DEXAMETHASONE) 2 Mg Tablet, 1 TAB PO EVERY OTHER DAY 09/29/18 Theophylline Anhydrous (THEOPHYLLINE) 400 Mg Tablet.er, 1 TAB PO QDAY 09/29/18 Sotalol Hcl (SOTALOL) 80 Mg Tab, 1 TAB PO QDAY 09/29/18 Cholecalciferol (Vitamin D3) (VITAMIN D3) 1,000 Unit Tablet, 2000 UNIT PO BID, TAB 07/24/18 Potassium Chloride (POTASSIUM CHLORIDE) 20 Meq Tab.er.prt, 20 MEQ PO QDAY 07/24/18 Riociguat (Adempas) 2.5 Mg Tablet, 2.5 MG PO TID 07/24/18 Furosemide (FUROSEMIDE) 40 Mg Tablet, 1 TAB PO DAILY, TAB 03/23/18 Atorvastatin Calcium (ATORVASTATIN CALCIUM) 40 Mg Tablet, 2 TAB PO QDAY, TAB 01/09/18 Apixaban (ELIQUIS) 5 Mg Tablet, 1 TAB PO BID 01/09/18 Aspirin (ASPIRIN) 81 Mg Tab.chew, 81 MG PO QDAY, TAB.CHEW 03/02/17 Past Medical/Surgical History Past medical history significant for small vessel disease, TIA, CVA, migraines, bradycardia, pulmonary embolism 2010, hypertension, hypercholesterolemia, oxygen use, pneumonia, restrictive lung disease, hiatal hernia, GERD, epididymitis, arthritis, pelvic fracture, R foot and ankle fracture, back pain, hearing loss. Past surgical history significant for pacemaker placement for bradycardia, GI surgery, hernia repair-lorraine procedure, spinal fusion Hx Smoking: No Smoking Status: Never Smoker Exposure to Second Hand Smoke?: No Hx Substance Use Disorder: No Hx Alcohol Use: No Constitutional Vital Sign - Last 24 Hours 09/29/18 09/29/18 09/29/18 09/29/18 19:09 19:20 19:20 19:30 Temp 100.0 Pulse 80 72 Resp 28 B/P (MAP) 133/64 118/69 (85) Pulse Ox 94 93 O2 Delivery Nasal Cannula O2 Flow Rate 3.0 09/29/18 09/29/18 09/29/18 09/29/18 19:35 19:50 19:57 19:58 Pulse 70 67 65 Resp 20 Pulse Ox 94 94 95 O2 Delivery Nasal Cannula O2 Flow Rate 3.0 09/29/18 09/29/18 09/29/18 09/29/18 20:04 20:05 20:10 20:25 Pulse 62 66 67 Resp 11 24 B/P (MAP) 114/72 (86) Pulse Ox 95 95 94 09/29/18 09/29/18 09/29/18 09/29/18 20:29 20:30 20:40 20:51 Pulse 67 60 64 Resp 20 21 16 B/P (MAP) 124/70 (88) Pulse Ox 94 09/29/18 09/29/18 09/29/18 09/29/18 20:55 21:00 21:05 21:05 Pulse ??? 72 77 Resp 32 31 20 B/P (MAP) 116/61 (79) Pulse Ox 97 96 09/29/18 21:11 B/P (MAP) 109/63 (78) Physical Exam General Appearance: The patient is alert, has no immediate need for airway protection and no signs of toxicity. Eyes: Pupils equal and round no pallor or injection. Respiratory: There are no retractions, lungs with wheezes upon auscultation throughout lung garcia, slightly diminished sounds to bases bilaterally. Dorsalis pedis pulses +2 bilaterally. Cardiovascular: Regular rate and rhythm. No murmurs, rubs, or gallops. No carotid bruits. Gastrointestinal: Abdomen is soft, no masses, bowel sounds normal. Reports pain to palpation of right upper quadrant. Patient reports he had previous surgery to this area in the past and has had pain to this area since then. The pain has not changed with this recent acute illness. Skin: Warm and dry, no rashes. Musculoskeletal: Extremities are nontender, nonswollen and have full range of motion. [DIFFERENTIAL DIAGNOSIS: After history and physical exam differential diagnosis was considered for pneumonia, COPD exacerbation, influenza, viral URI, conge stive heart failure. Medical Decision Making Data Points Result Diagram: 09/29/18191409/29/181914 Laboratory Hematology Test 09/29/18 19:15 09/29/18 20:02 Red Blood Count 4.60 M/uL (4.00-5.60) Mean Corpuscular Volume 89.2 fL (80.0-96.0) Mean Corpuscular Hemoglobin 30.7 pg (26.0-33.0) Mean Corpuscular Hemoglobin Concent 34.5 g/dL (32.0-36.0) Red Cell Distribution Width 15.6 % (11.5-14.5) Mean Platelet Volume 8.2 fL (7.2-11.1) Neutrophils (%) (Auto) 78.5 % (39.4-72.5) Lymphocytes (%) (Auto) 7.4 % (17.6-49.6) Monocytes (%) (Auto) 13.0 % (4.1-12.4) Eosinophils (%) (Auto) 0.3 % (0.4-6.7) Basophils (%) (Auto) 0.8 % (0.3-1.4) Nucleated RBC Relative Count (auto) 0.0 /100WBC Neutrophils # (Auto) 6.5 K/uL (2.0-7.4) Lymphocytes # (Auto) 0.6 K/uL (1.3-3.6) Monocytes # (Auto) 1.1 K/uL (0.3-1.0) Eosinophils # (Auto) 0.0 K/uL (0.0-0.5) Basophils # (Auto) 0.1 K/uL (0.0-0.1) Nucleated RBC Absolute Count (auto) 0.00 K/uL Peripheral Blood Smear Yes Y/N Sodium Level 136 mmol/L (137-145) Potassium Level 3.8 mmol/L (3.5-5.0) Chloride Level 96 mmol/L (98-107) Carbon Dioxide Level 28 mmol/L (22-30) Blood Urea Nitrogen 24 mg/dl (9-21) Creatinine 1.00 mg/dl (0.66-1.25) Glomerular Filtration Rate Calc > 60.0 Random Glucose 103 mg/dl (75-110) Lactate 1.3 mmol/L (0.7-2.1) Calcium Level 8.6 mg/dl (8.4-10.2) Total Bilirubin 0.7 mg/dl (0.2-1.3) Aspartate Amino Transf (AST/SGOT) 40 U/L (0-35) Alanine Aminotransferase (ALT/SGPT) 50 U/L (0-56) Alkaline Phosphatase 58 U/L (0-126) B-Type Natriuretic Peptide 89 pg/ml (0-100) Total Protein 7.2 g/dl (6.3-8.2) Albumin 4.4 g/dl (3.5-5.0) Influenza Virus Type A (PCR) Positive (NEGATIVE) Influenza Virus Type B (PCR) Negative (NEGATIVE) Blood Gas Patient Temperature Unknown DEGREES Venous Blood pH 7.44 (7.31-7.41) Venous Blood Partial Pressure CO2 41 mmHg Venous Blood Partial Pressure O2 < 35 mmHg Venous Blood HCO3 27 mmol/L Venous Blood Oxygen Saturation 61 % Venous Blood Base Excess 3 mmol/L Oxygen Liters/Minute Unknown Chemistry Test 09/29/18 19:15 09/29/18 20:02 White Blood Count 8.2 k/uL (4.5-11.0) Red Blood Count 4.60 M/uL (4.00-5.60) Hemoglobin 14.1 g/dL (14.0-18.0) Hematocrit 41.0 % (42.0-52.0) Mean Corpuscular Volume 89.2 fL (80.0-96.0) Mean Corpuscular Hemoglobin 30.7 pg (26.0-33.0) Mean Corpuscular Hemoglobin Concent 34.5 g/dL (32.0-36.0) Red Cell Distribution Width 15.6 % (11.5-14.5) Platelet Count 151 K/uL (150-450) Mean Platelet Volume 8.2 fL (7.2-11.1) Neutrophils (%) (Auto) 78.5 % (39.4-72.5) Lymphocytes (%) (Auto) 7.4 % (17.6-49.6) Monocytes (%) (Auto) 13.0 % (4.1-12.4) Eosinophils (%) (Auto) 0.3 % (0.4-6.7) Basophils (%) (Auto) 0.8 % (0.3-1.4) Nucleated RBC Relative Count (auto) 0.0 /100WBC Neutrophils # (Auto) 6.5 K/uL (2.0-7.4) Lymphocytes # (Auto) 0.6 K/uL (1.3-3.6) Monocytes # (Auto) 1.1 K/uL (0.3-1.0) Eosinophils # (Auto) 0.0 K/uL (0.0-0.5) Basophils # (Auto) 0.1 K/uL (0.0-0.1) Nucleated RBC Absolute Count (auto) 0.00 K/uL Peripheral Blood Smear Yes Y/N Glomerular Filtration Rate Calc > 60.0 Lactate 1.3 mmol/L (0.7-2.1) Calcium Level 8.6 mg/dl (8.4-10.2) Total Bilirubin 0.7 mg/dl (0.2-1.3) Aspartate Amino Transf (AST/SGOT) 40 U/L (0-35) Alanine Aminotransferase (ALT/SGPT) 50 U/L (0-56) Alkaline Phosphatase 58 U/L (0-126) B-Type Natriuretic Peptide 89 pg/ml (0-100) Total Protein 7.2 g/dl (6.3-8.2) Albumin 4.4 g/dl (3.5-5.0) Influenza Virus Type A (PCR) Positive (NEGATIVE) Influenza Virus Type B (PCR) Negative (NEGATIVE) Blood Gas Patient Temperature Unknown DEGREES Venous Blood pH 7.44 (7.31-7.41) Venous Blood Partial Pressure CO2 41 mmHg Venous Blood Partial Pressure O2 < 35 mmHg Venous Blood HCO3 27 mmol/L Venous Blood Oxygen Saturation 61 % Venous Blood Base Excess 3 mmol/L Oxygen Liters/Minute Unknown EKG/Imaging Imaging PATIENT NAME: Kwesi Vasquez : 1940 MR: [id number] V: [id number] EXAM DATE: ORDERING PHYSICIAN: MIKE MAYA TECHNOLOGIST: Location: [facility] - [place] Patient: Kwesi Vasquez : 1940 Visit/Account:[id number] Date of Sevice: 09/29/2018 Exam type: CHEST PA LAT History: Cough, chills, respiratory distress Comparison: 08/07/2018. Findings: Lungs are hyperinflated with chronic interstitial changes. There is no focal in filtrate, pleural effusion or pneumothorax. Right infrahilar fullness appears stable Heart is enlarged. Pacemaker device is noted. Bowel loops project below the diaphragm. The osseous structures demonstrate several healed right-sided rib fractures and a healed right scapular and clavicular fracture. Prior lower cervical fusion is noted. IMPRESSION: 1. No acute cardiopulmonary disease. ED Course/Re-evaluation ED Course Patient admitted to a patient room, history and physical obtained, and differentials considered. Patient with shortness of breath, wheezing, productive cough that started on Tuesday. Reports fever and chills that started today. F ever 100.0 upon arrival to ED. Patient reports last neb treatment was at 1715 at home this evening. At that time, O2 sat was 75% on RA, oxygen 3L then applied. Patient seen by pulmonology for possible restrictive lung disease. Patient also follows cardiology. CBC, CMP, influenza, blood gases, cultures, chest x-ray collected. Chest x-ray shows no acute cardiopulmonary process. Influenza A positive. Tamiflu was started. Patient was increased on his prednisone to 50 mg for 5 days and he was given Decadron 10 mg here. Patient was given DuoNebs. Return precautions provided. Close PCP follow-up recommended. Decision to Disposition Date: Sep 29, 2018 Decision to Disposition Time: 21:20 Depart Departure Latest Vital Signs Vital Signs Date Time Temp Pulse Resp B/P (MAP) Pulse Ox O2 Delivery O2 Flow Rate FiO2 09/29/18 21:11 109/63 (78) 09/29/18 21:05 77 20 09/29/18 21:05 96 09/29/18 19:57 Nasal Cannula 3.0 09/29/18 19:09 100.0 Impression: Primary Impression: Influenza A Condition: Improved Disposition: HOME OR SELF-CARE Referrals: LAUREN PUGA APRN INTERNET RESEARCHER-C (PCP) New Scripts Prednisone (PREDNISONE) 50 Mg Tablet 50 MG PO QDAY for 5 Days, #5 TAB Prov: MIKE MAYA DO 09/29/18 Oseltamivir Phosphate (TAMIFLU) 75 Mg Cap 75 MG PO BID for 5 Days, #10 CAP 0 Refills Prov: MIKE MAYA DO 09/29/18 Patient Instructions: Influenza (DC) Additional Instructions: Please drink plenty of water. Please take 1 tablet of Tamiflu twice daily for 5 days. Please take prednisone 1 tablet 50 mg daily for the next 5 days. Please return immediately if you develop worsening symptoms, chest pain, shortness breath, fevers or chills. MIKE MAYA DO Sep 29, 2018 19:14
[2018-09-29] MEDS ORDERED: SOT80 PO (19:20)
[2018-09-29] MEDS ORDERED: THEO400T9 PO (19:20)
[2018-09-29] MEDS ORDERED: DEXA2TAB7 PO (19:20)
[2018-09-29] MEDS ORDERED: DEXAMETHASONE SOD PHOS 10MG/ML IVP ONE (19:50)
[2018-09-29 19:57] LABS: PLATELET COUNT, AUTOMATED 151 K/uL (150-450)
[2018-09-29] MEDS: ALBUTEROL/IPRATROPIUM 3 ML NEB NEB SCH ×3 (19:57→20:52)
--- NOTE | 2018-09-29 20:37 | RADIOLOGY IMAGING REPORT ---
FACILITY: [facility] [place] PATIENT NAME: Kwesi Vasquez : 1940 MR: [id number] V: [id number] EXAM DATE: ORDERING PHYSICIAN: MIKE MAYA TECHNOLOGIST: Location: [facility] - [place] Patient: Kwesi Vasquez : 1940 Visit/Account:[id number] Date of Sevice: 09/29/2018 Exam type: CHEST PA LAT History: Cough, chills, respiratory distress Comparison: 08/07/2018. Findings: Lungs are hyperinflated with chronic interstitial changes. There is no focal infiltrate, pleural eff usion or pneumothorax. Right infrahilar fullness appears stable Heart is enlarged. Pacemaker device is noted. Bowel loops project below the diaphragm. The osseous structures demonstrate several healed right-sided rib fractures and a healed right scapul ar and clavicular fracture. Prior lower cervical fusion is noted. IMPRESSION: 1. No acute cardiopulmonary disease. Report Dictated By: Rush Narvaez MD at 09/29/2018 8:30 PM Report E-Signed By: Rush Narvaez MD at 09/29/2018 8:32 PM WSN:[id number]
[2018-09-29] MEDS ORDERED: OSELTAMIVIR PHOS 75 MG CAP PO ONE (21:00)
[2018-09-29] MEDS ORDERED: OSE75 PO (21:05)
[2018-09-29] MEDS ORDERED: PRED50TA22 PO (21:05)
[2018-09-29 21:11] VITALS: BP 109/63
== END 2018-09-29 21:15 | disposition home or self-care (01) ==
LOC: ER 19:15
DX: J11.1 Influenza due to unidentified influenza virus with other respiratory manifestations (principal)
CPT/HCPCS: 36415; 71046; 82803; 83605; 83880; 85025; 87040; 87502; 94640; 96374; 99284; A9270; J1100; J7620; 82040; 82247; 82310; 82374; 82435; 82565; 82947; 84075; 84132; 84155; 84295; 84450; 84460; 84520

== ENCOUNTER → 2018-11-10 | Outpatient (CLI) | payer MEDICARE ==
[2018-07-24 14:31] VITALS: BMI 28.6
[~2018-11-10] MED LIST changes: +DEXA2TAB7 PO; +OSE75 PO; +SOT80 PO; +THEO400T9 PO
== END ==
LOC: LAB 07:47
PROVIDERS: ATTEND Internal Medicine Cardiovascular Disease
DX: I27.20 Pulmonary hypertension, unspecified (principal); R06.02 Shortness of breath
CPT/HCPCS: 36415; 82040; 82247; 82310; 82374; 82435; 82565; 82947; 83880; 84075; 84132; 84155; 84295; 84450; 84460; 84520

== ENCOUNTER → 2018-11-22 | Outpatient (CLI) | payer MEDICARE ==
[2018-07-24 14:31] VITALS: BMI 28.6
== END ==
LOC: LAB 07:15
DX: I27.20 Pulmonary hypertension, unspecified (principal); R06.02 Shortness of breath
CPT/HCPCS: 36415; 82310; 82374; 82435; 82565; 82947; 83880; 84132; 84295; 84520

== ENCOUNTER → 2018-12-15 | Outpatient (CLI) | payer MEDICARE ==
[2018-07-24 14:31] VITALS: BMI 28.6
[~2018-12-15] MED LIST changes: -RANI-366 PO; +RANI-54 PO
== END ==
LOC: RESP 14:01
PROVIDERS: ATTEND Registered Nurse General Practice
DX: R09.02 Hypoxemia (principal); I27.20 Pulmonary hypertension, unspecified
CPT/HCPCS: 36600; 82803; 94618

== ENCOUNTER → 2019-02-05 | Outpatient (CLI) | payer MEDICARE ==
[2018-07-24 14:31] VITALS: BMI 28.6
[~2019-02-05] MED LIST changes: +IOPAMIDOL 76% 100 ML INFUS BTL 0 ML ONE; +NS(*) 0.9% 50 ML BAG 0 ML ONE
--- NOTE | 2019-02-05 13:26 | RADIOLOGY IMAGING REPORT ---
FACILITY: [facility] [place] PATIENT NAME: Kwesi Vasquez : 1940 MR: [id number] V: [id number] EXAM DATE: ORDERING PHYSICIAN: JOAO IRVING TECHNOLOGIST: Location: [facility] Patient: Kwesi Vasquez : 1940 Visit/Account:[id number] Date of Sevice: 02/05/2019 ADDENDUM #1 ADDENDUM: There is a nondisplaced fracture the posterior right 10th rib. This is not as well visualized as on t he CT scan of the abdomen, which also showed a nondisplaced fracture the posterior right 11th and 12t h rib. Report Dictated By: Rush Hennessy at 02/05/2019 1:32 PM Report E-Signed By: Rush Hennessy at 02/05/2019 1:[address] chest without contrast Indication: Bruising and pain to the chest and upper abdomen. Fall off ladder one week ago. Comparison: CTA chest 07/24/2018. Technique: Axial CT images are obtained through the chest without administration of IV contrast. One of the following dose optimization techniques was utilized in the performance of this exam: Autom ated exposure control; adjustment of the mA and/or kV according to the patient's size; or use of an i terative reconstruction technique. Specific details can be referenced in the facility's radiology C T exam operational policy.Reformatted coronal and sagittal images were reviewed. Findings: The heart is normal size without pericardial effusion. Mild coronary artery calcifications. Pacing wi res are in place. Aorta shows mild atherosclerotic calcific changes. The ascending aorta is prominent upper limits normal for size at 4 cm and stable. No indication of acute abnormality or aneurysm. The pulmonary arteries are grossly normal. There is no mediastinal hematoma and there is no pathologic mediastinal adenopathy seen. The lungs show mild scarring. No consolidations, pleural effusion or pneumothorax. No discrete nodule or focal interstitial opacities. Airways are clear. Bony structures show no acute fractures. Old bilateral rib fractures. Vertebral bodies show stable we dging of several vertebral bodies and degenerative changes. No acute compression fractures. The vargas um appears intact. No aggressive bony lesions. The chest wall shows no enlarged axillary lymph nodes or masses. The right adrenal gland does show a hypodense nodule measuring 1.4 cm Hounsfield of 19. This is stabl e from the previous exam. Mild prominence of the left adrenal gland which is stable without a defined nodule. The upper abdomen is otherwise unremarkable. IMPRESSION: 1. No acute cardiothoracic abnormality 2. Other stable chronic findings as above. Report Dictated By: Rush Hennessy at 02/05/2019 1:11 PM Report E-Signed By: Rush Hennessy at 02/05/2019 1:20 PM WSN:[id number]
--- NOTE | 2019-02-05 14:00 | RADIOLOGY IMAGING REPORT ---
FACILITY: [facility] [place] PATIENT NAME: Kwesi Vasquez : 1940 MR: [id number] V: [id number] EXAM DATE: ORDERING PHYSICIAN: JOAO IRVING TECHNOLOGIST: Location: [facility] [place] Patient: Kwesi Vasquez : 1940 Visit/Account:[id number] Date of Sevice: 02/05/2019 CT Head without contrast Indication: Dizziness. Fell from ladder one week ago. Comparison: 05/22/2017. Technique: Axial CT images were obtained through the brain from the skull base to the vertex without administration of IV contrast. Reformatted coronal and sagittal images were also obtained. One of the following dose optimization techniques was utilized in the performance of this exam: autom ated exposure control; adjustment of the mA and/or kV according to the patient's size; or use of an i terative reconstruction technique. Specific details can be referenced in the facility's radiology CT exam operational policy. Findings: No evidence of mass, mass effect, or midline shift. No acute intracranial hemorrhage or acute territorial infarction. No extra-axial fluid collection or hydrocephalus. Age-related cerebral atrophy. Periventricular white matter ischemic changes consistent small vessel disease. Marx/white matter differentiation appears n ormal. Benign falx calcifications. Mild bilateral internal carotid artery calcifications. Bony structures show no fractures or lesions. Visualized sinuses and mastoid show no significant disease. IMPRESSION: 1. Senescent changes without acute abnormality. I called report to JOAO IRVING at 02/05/2019 1:52 PM. Report Dictated By: Rush Hennessy at 02/05/2019 1:32 PM Report E-Signed By: Rush Hennessy at 02/05/2019 1:52 PM WSN:[id number]
--- NOTE | 2019-02-05 14:00 | RADIOLOGY IMAGING REPORT ---
FACILITY: [facility] PATIENT NAME: Kwesi Vasquez : 1940 MR: [id number] V: [id number] EXAM DATE: ORDERING PHYSICIAN: JOAO IRVING TECHNOLOGIST: Location: Patient: Kwesi Vasquez : 1940 Visit/Account:[id number] Date of Sevice: 02/05/2019 EXAMINATION: CT abdomen without IV contrast HISTORY: Upper abdominal bruising and pain. Fall off ladder one week ago. TECHNIQUE: Spiral scan was through the abdomen without intravenous contrast. Sagittal and coronal reformatted images are also submitted. One of the following dose optimization techniques was utilized in the performance of this exam: Autom ated exposure control; adjustment of the mA and/or kV according to the patient's size; or use of an i terative reconstruction technique. Specific details can be referenced in the facility's radiology C T exam operational policy. COMPARISON: 03/02/2017. FINDINGS: Please note that without intravenous contrast, sensitivity to detection of parenchymal disease is monk ited. Liver / biliary: Liver shows no acute abnormality or perihepatic fluid. The posterior inferior aspect does show a encapsulated 2.8 cm fat-containing lesion with a couple tiny foci of calcification. This is stable and could represent a lipoma status post cholecystectomy. The biliary system is unremarkab le. Pancreas: No focal abnormality. Spleen: Negative. Adrenal glands: Stable bilateral adrenal nodules, 1.1 cm on the left and 1.2 Cm on the right. Hounsfi eld unit on the right side is 14 and on the left side is 1. These are likely benign adenomas and have not changed. Kidneys: There are couple punctate stones in the collecting system of the right kidney without hydron ephrosis. Left kidney shows no discrete stones or hydronephrosis. No discrete renal lesions. Bowel: There are couple diverticula along the descending colon without pericolonic inflammation. The visualized colon and remaining GI tract visualized is within normal limits without focal abnormality. Peritoneum / retroperitoneum / mesenteries: No free air, free fluid, fluid collections or areas of in flammation. Vessels: Mild atherosclerotic calcific changes without aneurysm. Musculoskeletal / Body wall: There is nondisplaced fracture the posterior 11th, 12th and 10th right r ibs. This is better seen on this exam than the CT of the chest. No other acute fracture. Old bilatera l rib fractures and old left ilium fracture. No aggressive bony lesions. Degenerative changes seen in the spine with stable wedging of the mid to lower thoracic vertebral bodies. Postsurgical changes to the lumbar spine without sequelae. Lymph node assessment: Negative. Lower chest: Mild scarring, otherwise clear. IMPRESSION: 1. No acute intra-abdominal abnormality. 2. Nondisplaced fracture the posterior 10th, 11th and 12th right ribs. This is better seen on this ex am than CT of the chest. 3. Nonobstructing right renal calculi. 4. Other chronic stable findings as above. I called report to JOAO IRVING at 02/05/2019 1:52 PM. Report Dictated By: Rush Hennessy at 02/05/2019 1:20 PM Report E-Signed By: Rush Hennessy at 02/05/2019 1:53 PM WSN:[id number]
== END ==
LOC: CT 12:05
PROVIDERS: ATTEND Family Medicine
DX: M54.6 Pain in thoracic spine (principal); R42 Dizziness and giddiness; W11.XXXD Fall on and from ladder, subsequent encounter; S22.41XA Multiple fractures of ribs, right side, initial encounter for closed fracture
CPT/HCPCS: 70450; 71250; 74150; J7050; Q9967